=== PATIENT | female | born 1940 | race Caucasian/White ===

== ENCOUNTER 2016-08-18 11:54 | Inpatient (IN) | payer MEDICARE ==
--- NOTE | ~2016-08-18 | US77 ---
[facility] A Service of [facility] & [facility] RADIOLOGY TEXT RESULTS PATIENT: YASMIN CLIFTON LOCATION: [facility] 572-01 : 40 UNIT #: [id number] AGE: [address]: Janet Wills MD SEX: F ORDER DR: [id number] [facility] [address] [place], [place] [address] [id number] I MR#: [id number] Acc #: [id number] NAME: YASMIN CLIFTON. : 1940 SEX: F STUDY DATE/TIME: 08/19/2016 9:32 UNIT: [facility] ROOM: [facility] STUDY DESCRIPTION: US Kidney Bilateral Complete Attending Physician: Janet Wills M.D. Ordering Physician: Ed Doctor [id number] [facility] Primary Care Physician: Tee Bello M.D. MEDICAL IMAGING REPORT This report is preliminary unless electronic signature is present EXAM Complete renal ultrasound COMPARISON September 05, [address] abdomen and pelvis dated April 19, 2016. INDICATION 76-year-old female with chronic kidney disease. BUN of 48, creatinine of 2.2 and estimated GFR of 21. Additional history includes nonalcoholic steatohepatitis and prior cholecystectomy. FINDINGS Right kidney is small measuring up to 7.8 cm in length with cortical thinning. Cortical thickness is approximately 7.0-8.0 mm. There is no right hydronephrosis or shadowing calculus. Color flow is demonstrated in the right kidney. There are no focal lesions seen within the right kidney. There is a cirrhotic morphology of the liver which is small. Left kidney measures 8.9 cm in length, within normal limits for length with mild cortical thickening, (cortical thickness of 0.9 cm). Color flow is demonstrated within the left kidney. There is no left hydronephrosis, shadowing calculus or focal left renal lesion. There is mild splenomegaly with splenic length of 14.1 cm. Ascites is seen in the right upper quadrant of the abdomen as well as within the midline abdomen and pelvis. Ascitic fluid in the pelvis appears to be compressing the bladder which is not seen on this exam. IMPRESSION 1. Right kidney is small measuring up to 7.8 cm. There is normal left renal length. There is bilateral renal cortical thinning. No hydronephrosis, shadowing calculus or focal renal lesion. 2. Cirrhosis with mild splenomegaly and moderate ascites. Dictated by... [facility] A Service of [facility] & [facility] RADIOLOGY TEXT RESULTS PATIENT: YASMIN CLIFTON LOCATION: [place] [address] : 40 UNIT #: [id number] AGE: [address]: Janet Wills MD SEX: F ORDER DR: Daniel Hsu M.D. THIS IS AN ELECTRONICALLY VERIFIED REPORT Daniel Hsu M.D. at 08/21/2016 4:26 PM Daniel TD: 08/19/2016 22:17 JOB #: [id number] MEDICAL IMAGING REPORT Page 1 of 1 COPY
--- NOTE | ~2016-08-18 | CO ---
Unit #: [id number] #: [id number] Patient: YASMIN CLIFTON [id number] [address] [place], [place] [address] [id number] I MR#: [id number] NAME: YASMIN CLIFTON ROOM: 572 Age: 76 Sex: F Admission Date: 08/18/2016 : 1940 Attending Physician: Janet Wills M.D. Primary Care Physician: Tee Bello M.D. Consultation Date: 08/21/2016 CONSULTATION REPORT REASON FOR CONSULTATION Bradycardia. HISTORY OF PRESENT ILLNESS This is a 76-year-old white female, previously known to our group with a past medical history of coronary artery disease, status post cardiac catheterization 07/04/2007, which revealed a 60%-70% stenosis in the second obtuse marginal. Saphenous vein graft to the obtuse marginal was patent. Right coronary artery was 90% with saphenous vein graft to the right coronary artery patent. She was content on medical management. Previous coronary artery bypass grafting was in 1994. The patient also has a history of hypertension, COPD, chronic anemia and COOPER cirrhosis. She has not followed with a marine engineering teacher recently and denies stress test or cardiac catheterization the last couple of years. She presented to the emergency department on 08/18/2016 with complaints of shortness of breath. She has also had a productive cough with green sputum. There are no reports of fever or chills. The shortness of breath has been present for the last couple of days. She has had some right-sided chest pain with no radiation to the neck, jaw, shoulders or arms. There are no associated symptoms of nausea, vomiting or diaphoresis. In the emergency department her temperature is 99.3, pulse 91, respirations 18, blood pressure 137/38, O2 saturation 96% on room air. She is given Solu-Medrol, vancomycin, and normal saline. She was admitted for a right upper lobe pneumonia and COPD. Lung nodules were noted and pulmonology was consulted. In addition to the COPD, and pneumonia she was treated for ascites. She is found to be anemic with thrombocytopenia. Gastroenterology was consulted and she underwent an EGD, which revealed portal hypertension but no evidence of bleeding. Telemetry on 08/21/2016 and 08/22/2016 revealed sinus bradycardia with rates in the 30s for 40s. The patient also had a second degree AV block type 1. She admits to some dizziness but no syncope. No reports of current chest pain or palpitations. She does admit to shortness of breath that has not improved. She also has some abdominal distention and swelling. Cardiology was consulted for bradycardia. PAST MEDICAL HISTORY 1. Coronary artery disease, status post cardiac catheterization 07/04/2007, which revealed a left ventricular ejection fraction of 55%. Left main normal. Second obtuse marginal 60% to 70%. Saphenous vein graft to the obtuse marginal patent. Right coronary artery 90%. Saphenous vein graft to the right coronary artery patent. Please add LAD normal. Also add proximal right coronary artery 50%. 80% to 90% stenosis in the right common iliac artery. Medical management. Unit #: [id number] #: [id number] Patient: YASMIN CLIFTON 2. 2D echocardiogram 06/2007 revealed left ventricular ejection fraction of 55%. Mild LVH. Mild mitral and tricuspid regurgitation. Right ventricular systolic pressure of 40 mmHg. 3. History of coronary artery bypass grafting in 1994. 4. Hypertension. 5. Insulin dependent diabetes mellitus. 6. COPD. 7. COOPER. 8. Chronic anemia. 9. Chronic thrombocytopenia. 10. History of GI bleed. 11. Peripheral artery disease, status post left carotid endarterectomy. 12. Reformed tobacco. PAST SURGICAL HISTORY 1. Cardiac catheterization. 2. Coronary artery bypass grafting. 3. Left carotid endarterectomy. 4. Cholecystectomy. 5. Hysterectomy. 6. Exploratory laparotomy. 7. Bilateral breast biopsy. 8. Bilateral carpal tunnel release. HOME MEDICATIONS Humulin R of unknown dose; Protonix 40 mg p.o. b.i.d.; atenolol 25 mg daily; lactulose 30 mL p.o. 3 times daily; Lasix 40 mg p.o. daily; spironolactone 20 mg p.o. b.i.d.; Spiriva 1 inhalation daily; ProAir inhalation 3 times daily; Advair 250/50 one inhalation twice daily; acetaminophen 650 mg p.o. every 6 hours p.r.n. for pain. ALLERGIES Penicillin, sulfa, morphine, codeine, meperidine, and diphenhydramine. SOCIAL HISTORY The patient is a reformed smoker and quit over 25 years ago. There are no reports of alcohol of illicit drug use. FAMILY HISTORY Noncontributory. REVIEW OF SYSTEMS Ten point review of systems negative except for details in the above HPI. PHYSICAL EXAMINATION VITAL SIGNS: Temperature 97.5, pulse 64, blood pressure 160/54. CONSTITUTIONAL: This is a 76-year-old white female who is ill-appearing. SKIN: Warm and dry. NECK: Supple. Positive jugular venous distention. HEART: S1 and S2. Regular rate and rhythm. No murmurs, rubs or gallops. LUNGS: Bilateral breath sounds have good air entry except for some wheezes. Respirations even and unlabored. No rales or rhonchi. ABDOMEN: Distended, slightly firm and tender. Positive bowel sounds auscultated x4 quadrants. No ascites noted. EXTREMITIES: Lower extremities have trace pretibial pitting edema. DP and PT pulses 2+. Capillary refill is three seconds. DIAGNOSTIC STUDIES Unit #: [id number] #: [id number] Patient: YASMIN CLIFTON LABORATORY STUDIES: White blood cell count 8.0, hemoglobin 8.9, hematocrit 27.7, platelets 72. Sodium 136, potassium 4.9, chloride 109, CO2 17, BUN 57, creatinine 2.5, glucose 295, magnesium 2.3, AST 26, ALT 15, alk phos 98. BNP 494. Ammonia level 50. Lactic acid 1.7. INR 1.6. Influenza A and B negative. Urinalysis - positive for 1+ protein. IMAGING STUDIES: Chest x-ray 08/18/2016 reveals increased bronchovascular marking prominence around the right hilum compared to the previous exam. Perihilar infiltrate over congestive heart failure. Suspicion for right perihilar pneumonia. Ultrasound of the bilateral kidneys reveals right kidney is small measuring up to 7.8 cm. Normal left renal length. Bilateral renal cortical thickening. Cirrhosis with mild splenomegaly and moderate ascites. CT of the chest without contrast reveals irregularly marginated partially spiculated nodule in the superolateral right middle lobe 1.6 cm x 1.1 cm. Lobulated nodule in the anteromedial left upper lobe at 1.1 cm x 0.9 cm. Consider further evaluation with CT, PET scan or biopsy. Moderate patchy multifocal subsegmental infiltrates in the inferior and inferomedial right upper lobe. No adenopathy. Cirrhosis and small to moderate amount of perihepatic ascites. CARDIOVASCULAR STUDIES: Electrocardiogram reveals normal sinus rhythm with a ventricular rate of [address] or T changes. QTC 460 msec. IMPRESSION 1. Nonalcoholic steatohepatitis cirrhosis with ascites. 2. Anemia. 3. Thrombocytopenia. 4. Status post EGD with portal hypertension. 5. Right upper lobe pneumonia. 6. Chronic obstructive pulmonary disease. 7. Lung nodules. 8. Acute kidney injury on chronic kidney disease. 9. Secondary AV block, type 1. 10. History of coronary artery status post coronary artery bypass grafting in 1994. Grafts patent in 2007. 11. Previous ejection fraction 55% with mild mitral and tricuspid regurgitation. Mild to moderate pulmonary hypertension 06/2007. 12. Reformed tobacco abuse. PLAN 1. The patient presented to the hospital with complaints of shortness of breath. She was admitted for right upper lobe pneumonia and COPD. Gastroenterology was consulted for COOPER cirrhosis, ascites and anemia. 2. Cardiology was consulted due to bradycardia. 3. The patient (1) discontinued. There are no high grade AV blocks or significant pauses noted. 4. The patient appears significantly volume overloaded. However, her creatinine is elevated at 2.5. Nephrology has been consulted and will defer diuretics to them. 5. The patient is scheduled to undergo a paracentesis due to ascites. 6. Reports of chest pain. Cardiac enzymes are negative. 7. Will check a TSH level due to bradycardia and volume overload. Unit #: [id number] #: [id number] Patient: YASMIN CLIFTON Dictated by... Katrin Yarbrough APRN for Adrienne Amato TD: 08/24/2016 07:43 JOB #: [id number] CONSULTATION REPORT Page 1 of 1 X X CONSULTATION REPORT
--- NOTE | ~2016-08-18 | CR63 ---
[facility] A Service of [facility] RADIOLOGY TEXT RESULTS PATIENT: YASMIN CLIFTON LOCATION: [facility] 572-01 : 40 UNIT #: [id number] AGE: [address]: Frantz Cornejo MD SEX: F ORDER DR: [id number] [facility] [address] [place], [place] [address] [id number] I MR#: [id number] Acc #: [id number] NAME: YASMIN CLIFTON : 1940 SEX: F STUDY DATE/TIME: 08/26/2016 7:40 UNIT: [facility] ROOM: [facility] STUDY DESCRIPTION: CR Chest 2 View Attending Physician: Janet Wills M.D. Ordering Physician: Moy Martinez M.D. Primary Care Physician: Tee Bello M.D. MEDICAL IMAGING REPORT This report is preliminary unless electronic signature is present EXAM PA and lateral chest radiograph INDICATIONS Cough, congestion for 1 week COMPARISON Prior exam from August 18, 2016 FINDINGS Patient has cardiomegaly and vascular congestion which has worsened when compared to the prior examination. There are also bilateral pleural effusions left greater than right which increase when compared to the prior examination. No pneumothorax is seen. Patient is status post median sternotomy with coronary artery bypass grafting. There is discogenic degenerative disease of the spine and background changes of COPD. This patient is status median sternotomy with coronary artery bypass grafting. IMPRESSION 1. Cardiomegaly and vascular congestion worsened when compared to the prior exam. 2. Small bilateral pleural effusions left greater than right and left pleural effusion increased when compared to the prior study. Dictated by... Kendra Bello M.D. THIS IS AN ELECTRONICALLY VERIFIED REPORT Kendra Bello M.D. at 08/27/2016 4:36 PM AFF/to TD: 08/26/2016 17:48 [facility] A Service [facility] RADIOLOGY TEXT RESULTS PATIENT: YASMIN CLIFTON LOCATION: [facility] 572-01 : 40 UNIT #: [id number] AGE: [address]: Frantz Cornejo MD SEX: F ORDER DR: JOB #: [id number] MEDICAL IMAGING REPORT Page 1 of 1 COPY
--- NOTE | ~2016-08-18 | CT57 ---
[facility] A Service of [facility] RADIOLOGY TEXT RESULTS PATIENT: YASMIN CLIFTON LOCATION: [facility] 572-01 : 40 UNIT #: [id number] AGE: [address]: Janet Wills MD SEX: F ORDER DR: [id number] [facility] [address] [place], [place] [address] [id number] I MR#: [id number] Acc #: [id number] NAME: YASMIN CLIFTON. : 1940 SEX: F STUDY DATE/TIME: 08/19/2016 15:39 UNIT: [facility] ROOM: [facility] STUDY DESCRIPTION: CT Chest Wo Cont Attending Physician: Janet Wills M.D. Ordering Physician: Janet Wills M.D. Primary Care Physician: Tee Bello M.D. MEDICAL IMAGING REPORT This report is preliminary unless electronic signature is present EXAM CT chest without contrast HISTORY Shortness of air, congestion and cough for [address] examination was performed with one or more of the following radiation dose reduction techniques: automatic exposure control, adjustment of mA and/or kV according to patient size, and iterative reconstruction. FINDINGS CT chest without contrast demonstrates a 1.6 cm x 1.1 cm irregularly marginated, partly spiculated nodular lesion in the anterior right middle lobe. There is also a lobulated nodule in the anteromedial left upper lobe superiorly measuring 1.1 cm x 0.9 cm. Either or both of these lesions could be secondary to malignancy including lung carcinoma. Suggest further evaluation with PET/CT. There is also moderate to moderately extensive infiltrate in the anteroinferior right upper lobe, which could be secondary to pneumonia. There is also subsegmental atelectasis in the medial right middle lobe and in the inferior lingula. No adenopathy. Calcified mediastinal nodes. Sternotomy and CABG. Small hiatal hernia. Moderate thoracic kyphosis. Images of the upper abdomen demonstrate cirrhosis with a small to moderate amount of perihepatic ascites. IMPRESSION 1. Irregularly marginated partly spiculated nodule in the superolateral right middle lobe abutting the minor fissure measuring 1.6 cm x 1.1 cm. There is also a lobulated nodule in the anteromedial left upper lobe superiorly measuring 1.1 cm x 0.9 cm. Either or both of these lesions [facility] A Service of [facility] RADIOLOGY TEXT RESULTS PATIENT: YASMIN CLIFTON LOCATION: [facility] 572-01 : 40 UNIT #: [id number] AGE: [address]: Janet Wills MD SEX: F ORDER DR: could be secondary to malignancy including lung carcinoma. Consider further evaluation with PET/CT or biopsy. 2. Moderate patchy multifocal subsegmental infiltrates in the inferior and inferomedial right upper lobe. This could be secondary to pneumonia. There is additional subsegmental atelectasis in the anteromedial right upper lobe and in the medial right middle lobe and inferior lingula. 3. No adenopathy. 4. Images of the upper abdomen demonstrate cirrhosis and small to moderate amount of perihepatic ascites. Dictated by... Ugo Dunbar M.D. THIS IS AN ELECTRONICALLY VERIFIED REPORT Ugo Dunbar M.D. at 08/20/2016 3:04 PM EMILIANO/kishan TD: 08/20/2016 09:18 JOB #: [id number] MEDICAL IMAGING REPORT Page 1 of 1 COPY
--- NOTE | ~2016-08-18 | XA170 ---
[facility] A Service of [facility] & [facility] RADIOLOGY TEXT RESULTS PATIENT: YASMIN CLIFTON LOCATION: [facility] 57-01 : 40 UNIT #: [id number] AGE: [address]: Janet Wills MD SEX: F ORDER DR: [id number] [facility] [address] [place], [place] [address] [id number] I MR#: [id number] Acc #: [id number] NAME: YASMIN CLIFTON : 1940 SEX: F STUDY DATE/TIME: 08/21/2016 13:58 UNIT: [facility] ROOM: [facility] STUDY DESCRIPTION: XA Paracentesis W Image Attending Physician: Janet Wills M.D. Ordering Physician: Sara Rolon Aprn Primary Care Physician: Tee Bello M.D. MEDICAL IMAGING REPORT This report is preliminary unless electronic signature is present EXAM Ultrasound-guided paracentesis INDICATIONS 76-year-old female with ascites. Risks, benefits and alternatives of the procedure were discussed with the patient and informed consent was obtained. In the procedure room, a time-out was performed confirming correct patient and procedure. All elements of maximum sterile-barrier technique utilized according to guidelines appropriate for the procedure. TECHNIQUE/FINDINGS Ultrasound of the right lower quadrant was performed. There was a small amount of ascites. The overlying skin was prepped and draped in the usual sterile fashion. 1% lidocaine utilized to anesthetize the skin and underlying subcutaneous tissues. Next, under ultrasound guidance, a 5-Algerian Yueh catheter was inserted into the peritoneal space of the right lower quadrant and 1,700 mL of fluid was removed and samples sent to the lab. Needle was removed and a sterile dressing was applied. No immediate complications. IMPRESSION Successful ultrasound-guided paracentesis. Dictated by... Jose Garcia M.D. THIS IS AN ELECTRONICALLY VERIFIED REPORT Jose Garcia M.D. at 08/22/2016 9:09 AM ELAINE/kg TD: 08/21/2016 20:25 JOB #: [id number] [facility] A Service of [facility] & [facility] RADIOLOGY TEXT RESULTS PATIENT: YASMIN CLIFTON LOCATION: [facility] 572-01 : 40 UNIT #: [id number] AGE: [address]: Jante Wills MD SEX: F ORDER DR: MEDICAL IMAGING REPORT Page 1 of 1 COPY
--- NOTE | ~2016-08-18 | CT4 ---
[facility] A Service of [facility] & [facility] RADIOLOGY TEXT RESULTS PATIENT: YASMIN CLIFTON LOCATION: [facility] 572-01 : 40 UNIT #: [id number] AGE: [address]: Janet Wills MD SEX: F ORDER DR: [id number] [facility] [address] [place], [place] [address] [id number] I MR#: [id number] Acc #: [id number] NAME: YASIMN CLIFTON. : 1940 SEX: F STUDY DATE/TIME: 08/20/2016 23:20 UNIT: [facility] ROOM: 2 STUDY DESCRIPTION: CT Abd and Pelv Wo Cont Attending Physician: Janet Wills M.D. Ordering Physician: Janet Wills M.D. Primary Care Physician: Tee Bello M.D. MEDICAL IMAGING REPORT This report is preliminary unless electronic signature is present EXAM Abdomen and pelvis CT without contrast 08/20/2016 INDICATIONS 76-year-old female with chronic renal disease. Mid abdominal pain and flank pain on the right. History of kidney stones. Worsening symptoms over the past 2 days TECHNIQUE Noncontrast abdomen and pelvis CT was performed. This CT exam was performed with one or more of the following radiation dose reduction techniques: Automatic exposure control, adjustment of mA and/or kV according to patient size, and iterative reconstruction. COMPARISON 04/19/[address] abdomen Exam markedly degraded by noncontrast technique. There are bilateral pleural effusions trace on the left, small on the right. There is atelectasis in the lung bases. There is atelectasis in the lingula and right middle lobe. Chronic appearing area of likely scarring in the right middle lobe measures about 8 mm but has a spiculated appearance. Attention on followup to document 2 years of stability is recommended. No pericardial effusion. Aorta demonstrates atherosclerotic change. The spleen is borderline in size. Adrenal glands are unremarkable. Pancreas atrophic. Gallbladder surgically absent. Liver demonstrates advanced cirrhosis and is otherwise not well characterized or assessed on this noncontrast study. There is perihepatic and perisplenic ascites. No [facility] A Service of [facility] & [facility] RADIOLOGY TEXT RESULTS PATIENT: YASMIN CLIFTON LOCATION: [facility] 572-01 : 40 UNIT #: [id number] AGE: [address]: Janet Wills MD SEX: F ORDER DR: hydronephrosis or radiopaque stone associated with either kidney. Ureters not well visualized or assessed. No secondary sign of obstruction on either side. CT pelvis Bladder decompressed. There is moderate to large volume of ascites tracking into the pelvis. There is diverticulosis of the colon. No adnexal mass. Appendix not identified. No secondary sign of appendicitis. There is ascites tracking in both pericolic gutters right greater than left. No inguinal adenopathy or fluid collection. Recanalized periumbilical vein. No free air. No suspicious bone lesion. IMPRESSION 1. No radiopaque stone or hydronephrosis 2. Advanced cirrhosis of the liver with portal hypertension 3. Vliwvqju-tf-jnpnj volume of ascites 4. Diverticulosis 5. Pleural effusions right greater than left 6. Indeterminate spiculated area in the right middle lobe probably chronic scarring and unchanged from a prior study in March of 2016. Documentation of 2 years of stability on imaging is however recommended. 7. Surgical absence of the gallbladder and uterus. 1. Dictated by... Familia Fatima M.D. THIS IS AN ELECTRONICALLY VERIFIED REPORT Familia Fatima M.D. at 08/21/2016 9:59 PM ASHLEY/terell TD: 08/21/2016 09:30 JOB #: [id number] MEDICAL IMAGING REPORT Page 1 of 1 COPY
--- NOTE | ~2016-08-18 | OR ---
Unit #: [id number] #: [id number] Patient: YASMNI CLIFTON [id number] [facility]. [address] [address] [id number] I MR#: [id number] NAME: YASMIN CLIFTON ROOM: 572 Date of Procedure: 08/20/2016 Admission Date: 08/18/2016 Surgeon: Vasile Ghosh M.D. : 1940 Attending Physician: Janet Wills M.D. Primary Care Physician: Tee Bello M.D. OPERATIVE REPORT ADDITIONAL ATTENDING PHYSICIAN Dr. Angelo Escobar. PRIMARY CARE PHYSICIAN Tee Bello M.D. PREOPERATIVE DIAGNOSES History of melena, anemia of possible gastrointestinal blood loss, underlying nonalcoholic steatohepatitis with cirrhosis, and portal hypertension. PROCEDURE PERFORMED Upper gastrointestinal endoscopy. POSTOPERATIVE DIAGNOSES The patient had changes of portal hypertensive gastropathy in the stomach, otherwise examination was normal up to third part of duodenum. RECOMMENDATIONS The patient is too sick to undergo colonoscopy and also she is a poor surgical candidate. Suggest therefore transfuse packed cells and monitor hemoglobin and hematocrit. She also has significant underlying renal disease which may be contributing to anemia. SEDATION USED MAC. DESCRIPTION OF PROCEDURE Following detailed explanation of potential risks and complications of an upper endoscopy, namely perforation, bleeding, complication related to sedation, the patient was brought to the GI lab and laid in the left lateral decubitus position. Lubricated tip of the Olympus video upper endoscope was passed through the bite block into the proximal esophagus under direct vision. The entire esophageal mucosa was examined and appeared normal. Z-line was nicely demarcated, there being no esophagitis or hiatus hernia. Specifically, no esophageal varices were seen. The scope was then advanced into the gastric cavity and the latter was insufflated. Mucosa of the fundus, body, and antrum was examined and the patient was noted to have changes of portal hypertensive gastropathy in the form of reticular appearance of the mucosa and the fundus. The distal body and antrum was normal. Pylorus was intubated with visualization of the normal duodenal bulb and second and third part of the duodenum. Upon Unit #: [id number] #: [id number] Patient: YASMIN CLIFTON withdrawn and retroflexion, incisura, cardia, and greater curve was examined and no additional findings were noted. The scope was then withdrawn in the distal esophagus. The entire esophageal mucosa was examined all the way up to pharynx. No additional findings were noted. The patient tolerated the procedure without any postprocedure complications. Dictated by... Adrienne Pace TD: 08/21/2016 06:20 JOB #: [id number] OPERATIVE REPORT Page 1 of 1 X Vasile Ghosh MD X PROCEDURE OPERATIVE NOTE
--- NOTE | ~2016-08-18 | CO ---
Unit #: [id number] #: [id number] Patient: YASMIN CLIFTON [id number] [facility]. [address] [address] [id number] I MR#: [id number] NAME: YASMIN CLIFTON. ROOM: 572 Age: 76 Sex: F Admission Date: 08/18/2016 : 1940 Attending Physician: Janet Wills M.D. Primary Care Physician: Tee Bello M.D. Consultation Date: 08/20/2016 CONSULTATION REPORT ADDITIONAL ATTENDING PHYSICIAN Janet Wills M.D. REASON FOR CONSULTATION 1. Anemia, possibly of chronic gastrointestinal blood loss. 2. Underlying COOPER related cirrhosis. HISTORY OF PRESENT ILLNESS Ms. Clifton is a 76-year-old white female who is well known to me. She has longstanding history of COOPER related cirrhosis. She is admitted with increasing shortness of breath, swelling over the lower extremities and abdomen as well as decline in hemoglobin. She also has a history of melena yesterday and day before. Her admission chest x-ray showed right perihilar pneumonia. The patient is admitted because of sepsis, having had lactic acid is 2.6 and pneumonia. She has longstanding history of COPD. PAST MEDICAL HISTORY Significant for history of COPD, thrombocytopenia as a result of chronic liver disease from COOPER related cirrhosis, insulin-dependent diabetes, coronary artery disease, previous coronary artery bypass graft, peripheral arterial disease, left carotid endarterectomy, history of transient ischemic attacks, and hypertension. PAST SURGICAL HISTORY Included coronary artery bypass graft, left carotid endarterectomy, cholecystectomy, hysterectomy, exploratory laparotomy, bilateral breast biopsy, and bilateral carpal tunnel release. SOCIAL HISTORY The patient never drank alcohol and quit smoking about 26 years ago. FAMILY HISTORY None of colon, pancreatic cancer, or liver disease. MEDICATIONS At home included Humulin insulin, pantoprazole, Tenormin, lactulose, Lasix, Aldactone, Spiriva, ProAir, Advair, and acetaminophen. ALLERGIES She is allergic to metformin, Demerol, fentanyl, sulfonamides, diphenhydramine, and morphine. Unit #: [id number] #: [id number] Patient: YASMIN CLIFTON REVIEW OF SYSTEMS Detailed review of organ systems does not reveal any recent weight loss. No history of fever, chills, or rigors. No history of headache, seizures, chest pain, or syncope. No history of cough, expectoration, or hemoptysis. No history of dysuria, hematuria, or pyuria. No history of focal seizures or extremity weakness. PHYSICAL EXAMINATION GENERAL: She is awake, alert, and oriented, and appears to be short of breath even at baseline and is having bronchospasm at the time of examination. VITAL SIGNS: Indicated temperature of 97.7, pulse is 61 per minute and regular, respirations 18, blood pressure 135/47. She weighs 141 and 143 pounds, which is close to her baseline weight or little less. HEENT: She has buyy-ty-mrouyvlh pallor. There being no icterus, lymphadenopathy, or peripheral edema. CARDIOVASCULAR: Normal heart sounds. No murmurs on auscultation. LUNGS: Reveal bilateral diminished symmetric air entry along with expiratory wheeze. ABDOMEN: Soft and nontender. The patient has some degree of adiposity. It is hard to discern whether there is any underlying ascites. Liver and spleen are not palpable. Bowel sounds are normal. Hernia sites also normal. DIAGNOSTIC STUDIES LABORATORY RESULTS: Shows an INR of 1.6. Serum chemistry shows a BUN and creatinine of 35 and 2.1 and her baseline BUN and creatinine were 28 and 1.8. Serum sodium is 130, CO2 is 18, blood glucose 203, albumin is 2.4, total bilirubin is 2.9. AST, ALT, and alkaline phosphatase are all normal. BNP is 494. Ammonia is 50. The patient's platelet count is 74; white count is 10.4; hemoglobin 6, baseline hemoglobin is 10. CLINICAL IMPRESSION The patient has significant comorbidity in the form of nonalcoholic steatohepatitis related cirrhosis with associated thrombocytopenia. The anemia may be related to upper gastrointestinal bleed possibly from portal hypertensive gastropathy. An upper endoscopy therefore warranted to be scheduled shortly. In addition, the patient will be transfused packed cells. Hypoalbuminemia and thrombocytopenia are all related to underlying liver disease. The patient has significant comorbidity in the form of chronic obstructive pulmonary disease, on home oxygen and therefore not a good surgical candidate and a colonoscopy therefore unwarranted. Also underlying peripheral arterial disease and coronary artery disease. An upper endoscopy and a possible endotherapy will be planned later today. Thank you for asking me to see this pleasant woman. I appreciate the consult. Dictated byHoward.. Adrienne Pace TD: 08/21/2016 23:58 JOB #: [id number] Unit #: [id number] #: [id number] Patient: YASMIN CLIFTON CONSULTATION REPORT Page 1 of 1 X Vasile Ghosh MD CONSULTATION REPORT
--- NOTE | ~2016-08-18 | CO ---
Unit #: [id number] #: [id number] Patient: YASMIN CLIFTON xxx [facility]. [address] [address] [id number] I MR#: [id number] NAME: YASMIN CLIFTON ROOM: 572 Age: Sex: F Admission Date: 08/18/2016 : 1940 Attending Physician: Janet Wills M.D. Primary Care Physician: Tee Bello M.D. CONSULTATION REPORT REASON FOR CONSULT Acute kidney injury on chronic kidney disease. HISTORY OF PRESENT ILLNESS A 76-year-old white female with history of COOPER cirrhosis and CKD with baseline around 1 to 1.4 in the past who presented with shortness of breath, diarrhea and poor p.o. intake. In the emergency department she was found to have sepsis, likely secondary to pneumonia, as well as acute kidney injury with creatinine elevated to 2.1. She reported some chills but no fevers, poor p.o. intake, diarrhea, but denies any dysuria or hematuria. PAST MEDICAL HISTORY COOPER cirrhosis, diabetes, coronary artery disease status post CABG in the past, hypertension and COPD. PAST SURGICAL HISTORY CABG, carotid endarterectomy, cholecystectomy, hysterectomy, breast biopsy and bilateral carpal tunnel release. MEDICATIONS Insulin, Protonix, sodium bicarbonate, Combivent, Lovenox, Bumex, Lasix and spironolactone. PHYSICAL EXAMINATION GENERAL: She is currently in no acute distress. HEENT: She has dry oral mucosa. RESPIRATORY: She is clear to auscultation bilaterally. ABDOMEN: She has ascites. EXTREMITIES: No lower extremity edema. CARDIOVASCULAR: Regular rate and rhythm without gallop, murmur or rub. NEUROLOGIC: She is awake, alert, oriented x3. No focal deficits noted. DIAGNOSTIC STUDIES LABORATORY: White count 6.5, hemoglobin 7.4, platelets 67. Sodium 132, potassium 4.9, chloride 106, bicarb 18, BUN 39, creatinine 2.1, glucose 256. Urinalysis currently pending. ASSESSMENT AND PLAN 1. Acute kidney injury due to volume depletion per history, but she also has increased abdominal girth, which might be ascites and, therefore, volume overloaded. I am hesitant to give IV fluids secondary to her shortness of breath and ascites. However, she looks dry on exam at this time without peripheral edema. At this time we will check UA, Unit #: [id number] #: [id number] Patient: YASMIN CLIFTON urine electrolytes and will check a renal ultrasound. Will not give IV fluids but will hold diuretics for now. 2. Sepsis secondary to pneumonia, on antibiotics. Will need to be renally dosed. 3. Metabolic acidosis secondary to acute kidney injury, not critical. Check labs in the morning. Might need to restart sodium bicarbonate. 4. Hyponatremia secondary to volume depletion versus hypervolemia, but it also improved when adjusted for the chloride. Will hold IV fluids and diuretics tonight. Thanks for the consult. Dictated by... Ananya Pathak M.D. Romario TD: 08/25/2016 12:09 JOB #: [id number] CONSULTATION REPORT Page 1 of 1 X X CONSULTATION REPORT
--- NOTE | ~2016-08-18 | CO ---
Unit #: [id number] #: [id number] Patient: YASMIN CLIFTON [id number] [address] [place], [place] [address] [id number] I MR#: [id number] NAME: YASMIN CLIFTON ROOM: 572 Age: 76 Sex: F Admission Date: 08/18/2016 : 1940 Attending Physician: Janet Wills M.D. Primary Care Physician: Tee Bello M.D. CONSULTATION REPORT HISTORY OF PRESENT ILLNESS Ms. Clifton is a 76-year-old white female with history of COPD, cirrhosis, COOPER, insulin-dependent diabetes mellitus, coronary artery disease, peripheral vascular disease, history of GI bleed, who presented to the emergency room with a 3-day history of increasing shortness of breath. She also complained of cough and congestion and low-grade fever. She denied any nausea or vomiting. She had had some diarrhea. She says she has had a cough since and said she has been told she had pneumonia since then. I have reviewed the CT scans in the [place] system and there are no comments made about pneumonia. She had a CT scan of the chest in March, I believe on 04/19/2016, which did show some nodular densities in the right upper and left upper lobe. They were not commented on. The most recent CT scan was done yesterday and revealed to my review a 1.6 x 1.1 cm spiculated nodular lesion in the anterior right upper lobe and a 1.1 cm x 0.9 cm left upper lobe nodule. When compared to the March x-ray, they seem to have gotten a little bit larger. There was now an infiltrative process in the anterior part of the right upper lobe. She has had no hemoptysis. PAST MEDICAL HISTORY Significant for: 1. COPD. 2. Anemia. 3. Thrombocytopenia. 4. Cirrhosis secondary to COOPER. 5. Insulin-dependent diabetes mellitus. 6. Gastrointestinal bleeding. 7. Coronary artery disease. 8. History of CABG. 9. Peripheral vascular disease with left carotid endarterectomy. 10. History of TIAs. 11. Hypertension. PAST SURGICAL HISTORY 1. CABG. 2. Left carotid endarterectomy. 3. Cholecystectomy. 4. Hysterectomy. 5. Exploratory laparotomy. 6. Bilateral breast biopsy. 7. Bilateral carpal tunnel release. HOME MEDICATIONS Unit #: [id number] #: [id number] Patient: YASMIN CLIFTON 1. Humulin. 2. Prilosec. 3. Tenormin. 4. Lactulose. 5. Lasix. 6. Aldactone. 7. Spiriva. 8. ProAir. 9. Advair. 10. Acetaminophen. ALLERGIES 1. Morphine. 2. Metformin. 3. Demerol. 4. Fentanyl. 5. Sulfa. 6. Diphenhydramine. SOCIAL HISTORY Reformed smoker times 26 years. Denies alcohol or illicit drugs. FAMILY HISTORY Negative for inheritable disease. REVIEW OF SYSTEMS CONSTITUTIONAL: Possibly some fever and chills. HEENT: No rhinorrhea or nasal congestion. PULMONARY: As noted. CARDIOVASCULAR: No chest pain. GASTROINTESTINAL: No nausea or vomiting, some diarrhea. GENITOURINARY: No hematuria or dysuria. ENDOCRINE: No polyuria, polydipsia. NEUROLOGIC: No unilateral weakness or numbness. MUSCULOSKELETAL: No swollen joints. Does have increased lower extremity edema. HEMATOLOGIC: Does have easy bruising and bleeding. SKIN: She does have a lot of bruising. No rash. PHYSICAL EXAMINATION VITAL SIGNS: Blood pressure 134/80, pulse 73, respiratory rate 16, afebrile. GENERAL: White female in no distress. HEENT: Normocephalic, atraumatic. Pupils equal, round, reactive. Sclerae anicteric. Nasal passages patent. Posterior pharynx moist. NECK: Supple. Trachea midline. No cervical or supraclavicular lymphadenopathy. LUNGS: Occasional rhonchi. Some crackles at the bases. HEART: Sounds are distant. Regular rate and rhythm. Could not appreciate murmur, rub or gallop. ABDOMEN: Mildly distended. Bowel sounds present. No hepatosplenomegaly appreciated. EXTREMITIES: Without clubbing, cyanosis. There is 2+ edema. NEUROLOGIC: Awake, alert, oriented x3. Moves all extremities. SKIN: Warm and dry. Bruising noted. DIAGNOSTIC STUDIES LABORATORY: Creatinine 2.3. Lactic acid 1.7. PT/INR 1.6. White blood Unit #: [id number] #: [id number] Patient: YASMIN CLIFTON cell count 8, hematocrit 19.6, platelet count 74,000. Influenza is negative. Blood culture is currently negative. IMPRESSION 1. Bilateral nodules right upper lobe, left upper lobe. 2. New infiltrate right upper lobe, possible pneumonia. 3. Underlying chronic obstructive pulmonary disease. 4. Cirrhosis with COOPER. 5. Thrombocytopenia. 6. Other problems as noted above. PLAN 1. Would treat with antibiotics for pneumonia. 2. Will treat obstructive lung disease with inhaled bronchodilators. 3. Will need followup chest x-ray/CT scan to ensure clearing in one month. If not, will need bronchoscopy for evaluation. 4. Further recommendations pending this. Dictated by... Moy Martinez M.D. ANIYA/kristy TD: 08/21/2016 21:34 JOB #: [id number] CONSULTATION REPORT Page 1 of 1 X Moy Martinez MD X CONSULTATION REPORT
--- NOTE | ~2016-08-18 | EKG ---
PATIENT: YASMIN CLIFTON UNIT #: [id number] Ventricular Rate: 105 BPM Atrial Rate: 97 BPM QRS Duration: 68 ms Q-T Interval: 360 ms QTC Calculation(Bezet): 475 ms Calculated R [place]: 59 degrees Calculated T [place]: 64 degrees Diagnosis Line: Atrial fibrillation with rapid ventricular Diagnosis Line: response Diagnosis Line: Nonspecific ST abnormality Diagnosis Line: Abnormal ECG Diagnosis Line: When compared with ECG of 21-AUG-2016 08:04, Diagnosis Line: Atrial fibrillation has replaced Sinus rhythm Diagnosis Line: Vent. rate has increased BY 48 BPM Diagnosis Line: Confirmed by VICKIE RYAN MD ([id number]) on 08/28/2016 Diagnosis Line: 10:29:16 PM INTERPRETING MD: CONNOR MAHONEY
--- NOTE | ~2016-08-18 | DS ---
Unit #: [id number] #: [id number] Patient: YASMIN CLIFTON [id number] [address] [address] [id number] I MR#: [id number] NAME: YASMIN CLIFTON. ROOM: 572 Age: 76 Sex: F Admission Date: 08/18/2016 : 1940 Discharge Date: Attending Physician: Frantz Cornejo M.D. Primary Care Physician: Tee Bello M.D. DISCHARGE SUMMARY PLACE OF DISCHARGE To rehab facility. REASON FOR ADMISSION Pneumonia and sepsis on admission. HISTORY OF PRESENT ILLNESS/HOSPITAL COURSE The patient is a 76-year-old female underlying history of COOPER, chronic kidney disease, and chronic anemia, who was originally admitted secondary to mental status change as well as presumed right perihilar pneumonia. Through hospital course in regard to her pneumonia, she underwent a CT chest noncontrast which did reveal aforementioned infiltrate as well as two lung nodules which were noted. Pulmonary Services were subsequently consulted. Dr. Martinez and associates followed the patient through hospital course. He recommended outpatient CT in approximately 6 weeks for followup in regard to pneumonia/lung nodules. No further investigations were performed this hospital admission. In secondary to underlying history of COOPER as well as anemia, Dr. Ghosh was consulted for Gastroenterology Services as he had seen the patient in the past. She did have mental status change consistent with hepatic encephalopathy. She was maintained appropriately on lactulose while she was here. She did eventually undergo upper GI endoscopy secondary to decreased hemoglobin, please see his notes in regard to the same. In regard to her chronic kidney decline as well as kidney disease. Consultation was placed to Renal Services, Dr. Bettina Soto, saw and evaluated the patient while she was here. She was diuresed appropriately as her creatinine function would tolerate. In regard to her history of COOPER and cirrhosis, she did develop ascites and underwent paracentesis in this hospital admission. Cardiology Services were consulted secondary to atrial flutter with rapid ventricular response. She was maintained on rate control with beta blockers, however, no further anticoagulation was given secondary to her pancytopenia secondary to COOPER as well as elevated INR. Unit #: [id number] #: [id number] Patient: GUENTHNER,SANGEETHA At this point in time, all services have now signed off stating that she is stable for discharge. Physical and Occupational Therapy Services, both recommended rehab at time of discharge. Overall, her condition is guarded at best. Her prognosis is guarded and family is well aware. She is noted to be a DNR status which was reaffirmed with her as well as her family present at bedside. FINAL DISCHARGE DIAGNOSES 1. Right upper lobe pneumonia. 2. Lung nodules x2 noted on CT chest possible concern for underlying malignancy. 3. Anemia. 4. Bright red blood per rectum off and on likely with upper gastrointestinal bleed ruled out. 5. Portal hypertension. 6. Ascites, status post paracentesis with 1700 mL removed. 7. Chronic thrombocytopenia with baseline platelets between 60 to 80. 8. Chronic pancytopenia secondary to nonalcoholic steatohepatitis/cirrhosis. 9. Coagulopathy with INR noted to be 2.0. 10. Anemia, baseline hemoglobin between 8 to 9. 11. Atrial flutter with rapid ventricular response. No anticoagulation indicated. 12. Chronic obstructive pulmonary disease. 13. Hepatic encephalopathy. 14. Type 1 second-degree AV block, Wenckebach. 15. Severe tricuspid regurgitation noted on 2D echo this hospital admission. 16. Ejection fraction 50%. 17. Likely diastolic dysfunction. 18. Mental status changes secondary to aforementioned pneumonia as well as hepatic encephalopathy. 19. Generalized anxiety disorder. FINAL DISCHARGE MEDICATIONS Proventil HFA one puff t.i.d., albuterol nebulizer solution q.4 p.r.n., Advair 250/50 one puff b.i.d., lactulose t.i.d., Tylenol 650 mg p.o. q.6 p.r.n., Xifaxan 550 mg p.o. b.i.d., Spiriva 1 inhalation daily, probiotic p.o. daily, Lopressor 12.5 mg p.o. b.i.d., Bumex 1 mg p.o. daily, NovoLog low-dose sliding scale with Accu-Cheks q.a.c. and q.h.s., Aldactone 25 mg p.o. b.i.d., Protonix 40 mg p.o. b.i.d. Please note, prednisone, sodium bicarbonate, renal medications as well as antibiotics will be determined after they see and evaluate the patient later this afternoon. DISCHARGE DISPOSITION To rehab. Dictated by... Adrienne Stone/gladys Unit #: [id number] #: [id number] Patient: YASMIN CLIFTON TD: 08/27/2016 04:49 JOB #: [id number] DISCHARGE SUMMARY Page 1 of 1 X Janet Wills MD X DISCHARGE SUMMARY
--- NOTE | ~2016-08-18 | EKG ---
PATIENT: YASMIN CLIFTON UNIT #: [id number] Ventricular Rate: 83 BPM Atrial Rate: 83 BPM P-R Interval: 188 ms QRS Duration: 68 ms Q-T Interval: 392 ms QTC Calculation(Bezet): 460 ms P [place]: 44 degrees Calculated R [place]: 68 degrees Calculated T [place]: 17 degrees Diagnosis Line: Normal sinus rhythm Diagnosis Line: Nonspecific ST abnormality Diagnosis Line: Otherwise normal ECG Diagnosis Line: When compared with ECG of 15-OCT-2015 22:51, Diagnosis Line: No significant change was found Diagnosis Line: Confirmed by GRETTA CHAVEZ MD ([id number]) on 08/20/2016 Diagnosis Line: 10:53:57 PM INTERPRETING MD: SCOTT MAHONEY
--- NOTE | ~2016-08-18 | DS ---
Unit #: [id number] #: [id number] Patient: YASMIN CLIFTON [id number] [address] [address] [id number] I MR#: [id number] NAME: YASMIN CLIFTON ROOM: 2 Age: 76 Sex: F Admission Date: 08/18/2016 : 1940 Discharge Date: Attending Physician: Frantz Cornejo M.D. Primary Care Physician: Tee Bello M.D. DISCHARGE SUMMARY ADDENDUM No changes in the previous dictation. In the 24 hours that have passed since the dictation, bed has been found and the patient is being discharged now with no changes to the clinical course. Dictated by... Adrienne Suero/gz TD: 08/27/2016 13:45 JOB #: [id number] DISCHARGE SUMMARY Page 1 of 1 X Frantz Cornejo MD X DISCHARGE SUMMARY
--- NOTE | ~2016-08-18 | EKG ---
PATIENT: YASMIN CLIFTON UNIT #: [id number] Ventricular Rate: 57 BPM Atrial Rate: 58 BPM P-R Interval: 204 ms QRS Duration: 74 ms Q-T Interval: 496 ms QTC Calculation(Bezet): 482 ms P [place]: 24 degrees Calculated R [place]: 36 degrees Calculated T [place]: 30 degrees Diagnosis Line: Sinus bradycardia with marked sinus arrhythmia Diagnosis Line: Otherwise normal ECG Diagnosis Line: When compared with ECG of 18-AUG-2016 11:35, Diagnosis Line: No significant change was found Diagnosis Line: Confirmed by GRETTA CHAVEZ MD ([id number]) on 08/22/2016 Diagnosis Line: 9:14:19 PM INTERPRETING MD: SCOTT MAHONEY
--- NOTE | ~2016-08-18 | CR72 ---
[facility] A Service of [facility] RADIOLOGY TEXT RESULTS PATIENT: YASMIN CLIFTON LOCATION: [facility] : 40 UNIT #: [id number] AGE: [address]: Janet Wills MD SEX: F ORDER DR: [id number] [facility] [address] [facility]. [place], [place] [address] [id number] I MR#: [id number] Acc #: [id number] NAME: YASMIN CLIFTON. : 1940 SEX: F STUDY DATE/TIME: 08/18/2016 11:40 UNIT: [facility] ROOM: [facility] STUDY DESCRIPTION: CR Chest Single View Portable Attending Physician: Angelo Escobar M.D. Ordering Physician: Didier River D.O. Primary Care Physician: Tee Bello M.D. MEDICAL IMAGING REPORT This report is preliminary unless electronic signature is present EXAM Portable chest HISTORY Shortness breath, cough, congestion and dyspnea, chronically but worse over the past 3 days. COMPARISON 06/05/2016 TECHNIQUE Single view chest was obtained. FINDINGS The heart and mediastinum are stable. In the lungs, no new focal infiltrates are seen. Pulmonary vascular markings are mildly prominent. On the left side, this is unchanged. Bronchovascular markings around the right hilum are more prominent than on the previous exam. This could reflect a right perihilar infiltrate. No pleural fluid is seen. The heart and mediastinum are stable. IMPRESSION There is increased bronchovascular marking prominence around the right hilum compared to the previous examination while left lung shows no significant change. I favor perihilar infiltrate over congestive heart failure. Given the asymmetry. Findings are suspicious for right perihilar pneumonia given the patient's symptoms. Dictated by... Nabil Del Rio M.D. [facility] A Service of [facility] & [facility] RADIOLOGY TEXT RESULTS PATIENT: YASMIN CLIFTON LOCATION: [facility] : 40 UNIT #: [id number] AGE: [address]: Janet Wills MD SEX: F ORDER DR: THIS IS AN ELECTRONICALLY VERIFIED REPORT Nabil Del Rio M.D. at 08/21/2016 9:46 AM PRIMITIVO/dilan TD: 08/18/2016 22:31 JOB #: [id number] MEDICAL IMAGING REPORT Page 1 of 1 COPY
--- NOTE | ~2016-08-18 | HP ---
Unit #: [id number] #: [id number] Patient: YASMIN CLIFTON [id number] [address] [address] [id number] I MR#: [id number] NAME: YASMIN CLIFTON ROOM: 33563 Age: 76 Sex: F Admission Date: 08/18/2016 : 1940 Attending Physician: Angelo Escobar M.D. Primary Care Physician: Tee Bello M.D. HISTORY AND PHYSICAL CHIEF COMPLAINT Shortness of breath. 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 The patient was also complaining of the productive cough associated with the shortness of breath and the low-grade fever. The patient denies any nausea and vomiting. The patient complains of the diarrhea, started yesterday and states that it feels like the patient has pneumonia in the right lung. The patient had a chest x-ray that showed right perihilar pneumonia, infiltrate and is admitted for the above reasons. The patient had a lactic of 2.6 and is being admitted for the sepsis and the right perihilar pneumonia. 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 PAST SURGICAL HISTORY CABG, left carotid endarterectomy, cholecystectomy, hysterectomy, ex lap, bilateral breast biopsy, bilateral carpal tunnel release. SOCIAL HISTORY The patient used to smoke but she quit 26 years ago. The patient denies alcohol or any illicit drug abuse. FAMILY HISTORY Reviewed and none. ALLERGIES Morphine, metformin, Demerol, Fentanyl, sulfa and diphenhydramine. HOME MEDICATIONS 1. Humulin. 2. Pantoprazole. 3. Tenormin. 4. Lactulose. 5. Lasix. 6. Aldactone. Unit #: [id number] #: [id number] Patient: YASMIN CLIFTON 7. Spiriva. 8. ProAir. 9. Advair. 10. Acetaminophen. REVIEW OF SYMPTOMS A 14-point review of systems was performed and the only pertinent positive findings are described above. Remaining are negative. PHYSICAL EXAMINATION GENERAL APPEARANCE: The patient is lying on the bed not in acute distress. VITAL SIGNS: Temperature 99.3. Pulse 91. Respiratory rate 18. Blood pressure 137/38. Sating 96% at room air. HEENT: Head: Atraumatic, normocephalic. Pupils equal, round, reacting light and accommodation. Extraocular movements are intact. NECK: Supple. Dry mucous membranes. LUNGS: Diffuse air entry at the bases. Positive for rhonchi. HEART: Regular rate and rhythm. ABDOMEN: Distended. Positive bowel sounds. EXTREMITIES: No cyanosis. No clubbing. NEUROLOGIC: Alert, awake, oriented. DIAGNOSTIC STUDIES LABORATORY: Glucose 203, BUN 23, creatinine 2.1, sodium 130, potassium 3.9, chloride 104, bicarb 18, calcium 8, total protein 6.1, albumin 2.4, total bilirubin 2.9, indirect bilirubin 1.8, direct bilirubin 1.1, AST 30, ALT 16, alkaline phosphatase 143. BNP 494. Ammonia 52. Lactic acid 2.4 and down to 1.7. INR 1.4. WBC 10.4, hemoglobin 7.6, hematocrit 24.3, platelets 73. Flu screen is negative. IMAGING: The chest x-ray shows right perihilar infiltrate concerning for pneumonia. ASSESSMENT 1. Right perihilar pneumonia. 2. Sepsis. 3. (1) . 4. Anemia. PLAN To admit the patient to inpatient with telemetry. The patient will have IV antibiotics with aztreonam and Zithromax. The patient will continue with the sepsis protocol, will have a GI consult for anemia and the Renal consult for the hyponatremia and acute kidney injury. Repeat the labs again in the morning and low dose sliding scale and further recommendation will follow as more lab results are available. Dictated by Adrienne Mendiola TD: 08/18/2016 18:33 JOB #: [id number] Unit #: [id number] #: [id number] Patient: YASMIN CLIFTON HISTORY AND PHYSICAL Page 1 of 1 X X HISTORY AND PHYSICAL
[2016-08-18 11:50] LABS: POC - CKMB <1.0 ng/mL (0.0-7.9); POC - TROPONIN <0.05 ng/mL (<=0.05)
[~2016-08-18 11:54] MED LIST: ACETAMINOPHEN PO; ADVAIR 250-501 EAC1 INH; ADVAIR 2501 DISK W/1; ADVAIR 2501 DISK W/1 INH; ALBUTEROL17 GM INH; ALBUTEROL20 ml INH; ALDACTONE PO; ALDACTONE25 MG; ALDACTONE25 MG PO; ALPRAZOLAM; ALPRAZOLAM PO; ALVESCO 160 MCG PO; AMARYL; ASPIRIN EC81 M1 PO; ASPIRIN81 M1 PO; ASPIRINEC; ASPIRINEC PO; ATENOLOL PO; AVAPRO; CENTRUM SILVER; CERTAGEN PO; CIPRO PO; CIPRO250 MG PO; CORGARD; CORGARD40 MG PO; DICYCLOMINE HCL20 MG PO; DOXYCYCLINE HY100 M3 PO; ENULOSE PO; FEOSOL PO; FERROUS SU325 ( 65 ) PO; FLAGYL PO; FLAGYL250 M1 PO; FUROSEMIDE40 MG PO; GENERLAC; HUMULIN N; HUMULIN N100 U/ML; HUMULIN N100 U/ML SQ; HUMULIN N100 U/ML SUBQ; HUMULIN N300 U/3 ML SUBQ; HUMULIN R100 U/ML; HUMULIN R100 U/ML SQ; HUMULIN R100 U/ML SUBQ; IRON1 TAB; KCL PO; KLOR-CON PO; LACTULOSE PO; LACTULOSE10 G/15 M1 PO; LACTULOSE10 G/15 ML PO; LASIX; LASIX PO; LASIX20 MG PO; LOMOTIL TABLET1 TAB; LORTAB 10-5001 EACH PO; LORTAB 5-325 M1 EACH; LORTAB 5/500 TA1 TA1 PO; MULTI-DAY VITAM1 TAB PO; MULTI-VITAMIN1 TAB; MULTI-VITAMIN1 TAB PO; NEXIUM; NEXIUM PO; NITROGYLCERIN; NITROGYLCERIN SL; NITROGYLCERIN SUBLINGUAL; NITROSTAT0.4 MG; NYSTATIN-TRIAMC15 G1; PANTOPRAZOLE SO40 MG PO; PHENERGAN PO; PHENERGAN SUPP25 MG PR; PROAIR HFA8.5 GM; PROAIR HFA8.5 GM INH; PROTONIX PO; SPIRIVA18 MCG; SPIRIVA18 MCG INH; TENORMIN25 MG PO; TENORMIN50 MG; ULTRAM PO; ZOFRAN ODT4 MG PO; ZOFRAN ODT4 MG/UDTAB PO
[2016-08-18 12:03] LABS: BASOPHIL% 0.3 % (0-2.5); EOSINOPHIL% 0.1 % (0.0-7.0); HEMATOCRIT 24.3 % (35.0-45.0); HEMOGLOBIN 7.6 gm/dL (12.0-16.0); LYMPHOCYTE# 0.8 X10e3 (1.0-3.5); MEAN CELL VOLUME 87.5 FL (83-96); MEAN CORPUSCULAR HEMOGLOBIN 27.4 PG (28-34); MEAN CORPUSCULAR HGB CONC 31.4 g/dL (30-36); MEAN PLATELET VOLUME 11.4 FL (6.5-11.5); MONOCYTE# 1.9 X10e3 (0-1.0); MONOCYTE% 17.8 % (3.0-12.0); NEUTROPHIL# 7.7 X10e3 (1.5-7.1); NEUTROPHIL% 73.8 % (40-75); RED BLOOD COUNT 2.78 X10e (3.90-5.30); WHITE BLOOD COUNT 10.4 X10e3 (4.0-10.5)
[2016-08-18 12:10] LABS: INR 1.4; PARTIAL THROMBOPLASTIN TIME 34.3 SECONDS (23.5-31.3); PROTHROMBIN TIME (PATIENT) 15.3 SECONDS (9.6-11.5)
[2016-08-18 12:22] LABS: ALBUMIN SERUM 2.4 g/dL (3.5-5.0); BILIRUBIN, DIRECT 1.1 mg/dL (0.0-0.2); BILIRUBIN,INDIRECT 1.8 mg/dL (0.0-0.9); BILIRUBIN,TOTAL 2.9 mg/dL (0.2-2.0); BUN/CREATININE RATIO 16.66; CREATININE SERUM 2.1 mg/dL (0.6-1.4); GLOM FILT RATE Estimated 22.3 mL/min (>60); POTASSIUM 3.9 mmol/L (3.5-5.1); PROTEIN TOTAL SERUM 6.1 g/dL (6.0-8.3)
[2016-08-18 12:23] LABS: INFLUENZA A NEG (NEG); INFLUENZA B NEG (NEG)
[2016-08-18 12:48] LABS: DIFF IND YES; PLATELET COUNT 73 X10e3 (140-420)
[2016-08-18 12:52] LABS: PLATELET ESTIMATE DECREASED (NORMAL)
[2016-08-18 12:53] LABS: ANISOCYTOSIS SL
[2016-08-18 13:58] LABS: POC - CKMB <1.0 ng/mL (0.0-7.9); POC - TROPONIN <0.05 ng/mL (<=0.05)
[2016-08-18 19:11] LABS: EOSINOPHIL# 0.2 X10e3 (0-0.7); EOSINOPHIL% 2.4 % (0.0-7.0); HEMATOCRIT 23.4 % (35.0-45.0); HEMOGLOBIN 7.4 gm/dL (12.0-16.0); LYMPHOCYTE# 0.5 X10e3 (1.0-3.5); LYMPHOCYTE% 7.3 % (17.0-45.0); MEAN CELL VOLUME 86.8 FL (83-96); MEAN CORPUSCULAR HEMOGLOBIN 27.5 PG (28-34); MEAN CORPUSCULAR HGB CONC 31.7 g/dL (30-36); MEAN PLATELET VOLUME 11.6 FL (6.5-11.5); MONOCYTE# 0.6 X10e3 (0-1.0); MONOCYTE% 9.8 % (3.0-12.0); NEUTROPHIL# 5.2 X10e3 (1.5-7.1); NEUTROPHIL% 80.5 % (40-75); PLATELET COUNT 67 X10e3 (140-420); WHITE BLOOD COUNT 6.5 X10e3 (4.0-10.5)
[2016-08-18 19:19] LABS: DIFF IND YES
[2016-08-18 19:30] LABS: BUN/CREATININE RATIO 18.57; CALCIUM SERUM 7.9 mg/dL (8.4-10.2); CREATININE SERUM 2.1 mg/dL (0.6-1.4); GLOM FILT RATE Estimated 22.3 mL/min (>60); POTASSIUM 4.9 mmol/L (3.5-5.1)
[2016-08-18 19:54] LABS: ANISOCYTOSIS MOD; PLATELET ESTIMATE DECREASED (NORMAL); POIKILOCYTOSIS MOD
[2016-08-18 19:55] LABS: TARGET CELLS SL
[2016-08-19 06:04] LABS: URINE SOURCE CLEAN CATCH
[2016-08-19 06:14] LABS: URINE APPEARANCE CLEAR; URINE BILIRUBIN NEG (NEG); URINE BLOOD NEG (NEG); URINE COLOR YELLOW; URINE GLUCOSE NEG (NEG); URINE KETONE NEG (NEG); URINE LEUKOCYTE ESTERASE TRACE (NEG); URINE NITRATE NEG (NEG); URINE PROTEIN NEG (NEG); URINE SPECIFIC GRAVITY 1.015 (1.003-1.035)
[2016-08-19 06:16] LABS: URINE BACTERIA AUWI NEG (NEGATIVE); URINE SQUAMOUS EPITHELIAL CELL OCC /[HPF]
[2016-08-19 06:20] LABS: CREATININE,RANDOM URINE 118 mg/dL
[2016-08-19 06:23] LABS: SODIUM URINE RANDOM <10 mmol/L
[2016-08-19 09:07] LABS: HEMATOCRIT 24.3 % (35.0-45.0); HEMOGLOBIN 7.5 gm/dL (12.0-16.0); MEAN CELL VOLUME 88.2 FL (83-96); MEAN CORPUSCULAR HEMOGLOBIN 27.2 PG (28-34); MEAN CORPUSCULAR HGB CONC 30.8 g/dL (30-36); RED BLOOD COUNT 2.76 X10e (3.90-5.30); RED CELL DISTRIBUTION WIDTH 17.7 % (11.0-15.5); WHITE BLOOD COUNT 5.3 X10e3 (4.0-10.5)
[2016-08-19 09:27] LABS: BUN/CREATININE RATIO 21.81; CALCIUM SERUM 8.3 mg/dL (8.4-10.2); CREATININE SERUM 2.2 mg/dL (0.6-1.4); GLOM FILT RATE Estimated 21.1 mL/min (>60); POTASSIUM 4.6 mmol/L (3.5-5.1)
[2016-08-20 13:04] LABS: HEMATOCRIT 19.6 % (35.0-45.0); MEAN CELL VOLUME 90.4 FL (83-96); MEAN CORPUSCULAR HEMOGLOBIN 27.8 PG (28-34); MEAN CORPUSCULAR HGB CONC 30.8 g/dL (30-36); MEAN PLATELET VOLUME 12.2 FL (6.5-11.5); RED BLOOD COUNT 2.17 X10e (3.90-5.30); RED CELL DISTRIBUTION WIDTH 18.6 % (11.0-15.5)
[2016-08-20 13:17] LABS: INR 1.6; PROTHROMBIN TIME (PATIENT) 16.6 SECONDS (9.6-11.5)
[2016-08-20 13:50] LABS: ALBUMIN SERUM 3.2 g/dL (3.5-5.0); BILIRUBIN,TOTAL 1.1 mg/dL (0.2-2.0); BUN/CREATININE RATIO 26.08; CALCIUM SERUM 8.4 mg/dL (8.4-10.2); CREATININE SERUM 2.3 mg/dL (0.6-1.4); MAGNESIUM 2.2 mg/dL (1.6-3.0); POTASSIUM 4.7 mmol/L (3.5-5.1)
[2016-08-21 10:36] LABS: HEMATOCRIT 27.7 % (35.0-45.0); MEAN CELL VOLUME 88.7 FL (83-96); MEAN CORPUSCULAR HEMOGLOBIN 28.6 PG (28-34); MEAN CORPUSCULAR HGB CONC 32.2 g/dL (30-36); MEAN PLATELET VOLUME 10.9 FL (6.5-11.5); RED BLOOD COUNT 3.13 X10e (3.90-5.30); RED CELL DISTRIBUTION WIDTH 16.9 % (11.0-15.5)
[2016-08-21 10:47] LABS: HEMOGLOBIN 8.9 gm/dL (12.0-16.0)
[2016-08-21 11:04] LABS: BUN/CREATININE RATIO 22.8; CALCIUM SERUM 8.7 mg/dL (8.4-10.2); CREATININE SERUM 2.5 mg/dL (0.6-1.4); GLOM FILT RATE Estimated 18.1 mL/min (>60); MAGNESIUM 2.3 mg/dL (1.6-3.0); PHOSPHOROUS 3.7 mg/dL (2.5-4.6); POTASSIUM 4.9 mmol/L (3.5-5.1)
[2016-08-21 14:25] LABS: URINE SOURCE CLEAN CATCH
[2016-08-21 14:43] LABS: URINE APPEARANCE CLEAR; URINE BILIRUBIN NEG (NEG); URINE BLOOD NEG (NEG); URINE COLOR YELLOW; URINE GLUCOSE NEG (NEG); URINE KETONE NEG (NEG); URINE LEUKOCYTE ESTERASE NEG (NEG); URINE NITRATE NEG (NEG); URINE PROTEIN 1+ (NEG); URINE SPECIFIC GRAVITY 1.016 (1.003-1.035); URINE UROBILINOGEN 0.2 MG/DL (NEG)
[2016-08-21 14:44] LABS: URBCS1 AUWI 0-2 /[HPF] (0-2); URINE BACTERIA AUWI NEG (NEGATIVE); URINE SQUAMOUS EPITHELIAL CELL NONE SEEN /[HPF]; UWBCS1 AUWI 0-2 (0-5)
[2016-08-21 14:45] LABS: CULTURE INDICATED? NO
[2016-08-21 16:19] LABS: BF TOTAL NUCLEATED CELL COUNT 236 CMM (0-100); BODY FLUID APPEARANCE HAZY; BODY FLUID RBC <10000 CMM; BODY FLUID SOURCE ASCITES
[2016-08-22 05:51] LABS: HEMATOCRIT 27.3 % (35.0-45.0); HEMOGLOBIN 8.8 gm/dL (12.0-16.0); MEAN CELL VOLUME 88.5 FL (83-96); MEAN CORPUSCULAR HEMOGLOBIN 28.4 PG (28-34); MEAN CORPUSCULAR HGB CONC 32.1 g/dL (30-36); MEAN PLATELET VOLUME 10.5 FL (6.5-11.5); RED BLOOD COUNT 3.09 X10e (3.90-5.30); RED CELL DISTRIBUTION WIDTH 17.1 % (11.0-15.5); WHITE BLOOD COUNT 6.1 X10e3 (4.0-10.5)
[2016-08-22 06:39] LABS: ALBUMIN SERUM 3.1 g/dL (3.5-5.0); BILIRUBIN,TOTAL 2.1 mg/dL (0.2-2.0); BUN/CREATININE RATIO 22.08; CALCIUM SERUM 8.7 mg/dL (8.4-10.2); CREATININE SERUM 2.4 mg/dL (0.6-1.4); POTASSIUM 4.5 mmol/L (3.5-5.1); PROTEIN TOTAL SERUM 5.8 g/dL (6.0-8.3)
[2016-08-22 14:14] LABS: ARTERIAL BLD GAS O2 SATURATION 91.3 % (90.0-100.0); ARTERIAL BLOOD GAS CARBOXY HB 0.9 %sat (0.0-9.0); ARTERIAL BLOOD GAS HCO3 18.7 mmol/L; ARTERIAL BLOOD GAS PCO2 33.9 mmHg (35.0-45.0); ARTERIAL BLOOD GAS pH 7.351 (7.350-7.450)
[2016-08-22 14:15] LABS: ARTERIAL BLOOD GAS ALLEN TEST NORMAL; ARTERIAL BLOOD GAS ART SITE RIGHT RADIAL; ARTERIAL BLOOD GAS DELIVERY NASAL CANNULA; ARTERIAL DRAW? YES
[2016-08-23 06:32] LABS: MEAN CELL VOLUME 90.7 FL (83-96); MEAN CORPUSCULAR HEMOGLOBIN 29.3 PG (28-34); MEAN CORPUSCULAR HGB CONC 32.3 g/dL (30-36); MEAN PLATELET VOLUME 11.1 FL (6.5-11.5); RED BLOOD COUNT 3.08 X10e (3.90-5.30); RED CELL DISTRIBUTION WIDTH 17.4 % (11.0-15.5); WHITE BLOOD COUNT 7.6 X10e3 (4.0-10.5)
[2016-08-23 07:05] LABS: ALBUMIN SERUM 3.2 g/dL (3.5-5.0); BILIRUBIN,TOTAL 1.6 mg/dL (0.2-2.0); BUN/CREATININE RATIO 21.11; CALCIUM SERUM 9.3 mg/dL (8.4-10.2); CREATININE SERUM 2.7 mg/dL (0.6-1.4); GLOM FILT RATE Estimated 16.5 mL/min (>60); MAGNESIUM 2.2 mg/dL (1.6-3.0); PHOSPHOROUS 4.6 mg/dL (2.5-4.6); POTASSIUM 4.5 mmol/L (3.5-5.1); PROTEIN TOTAL SERUM 5.8 g/dL (6.0-8.3)
[2016-08-24 06:07] LABS: HEMATOCRIT 26.1 % (35.0-45.0); HEMOGLOBIN 8.4 gm/dL (12.0-16.0); MEAN CELL VOLUME 90.3 FL (83-96); MEAN CORPUSCULAR HGB CONC 32.1 g/dL (30-36); MEAN PLATELET VOLUME 10.4 FL (6.5-11.5); RED BLOOD COUNT 2.89 X10e (3.90-5.30); RED CELL DISTRIBUTION WIDTH 17.3 % (11.0-15.5); WHITE BLOOD COUNT 10.8 X10e3 (4.0-10.5)
[2016-08-24 06:28] LABS: BILIRUBIN,TOTAL 1.4 mg/dL (0.2-2.0); BUN/CREATININE RATIO 24.07; CREATININE SERUM 2.7 mg/dL (0.6-1.4); GLOM FILT RATE Estimated 16.5 mL/min (>60); POTASSIUM 3.1 mmol/L (3.5-5.1); PROTEIN TOTAL SERUM 5.5 g/dL (6.0-8.3)
[2016-08-24 06:29] LABS: THYROID STIMULATING HORMONE 0.15 uIU/ml (0.34-5.60)
[2016-08-24 06:38] LABS: FREE THYROXIN (T4) 1.28 ng/dL (0.58-1.64)
[2016-08-24 22:33] LABS: URINE APPEARANCE CLEAR; URINE BILIRUBIN NEG (NEG); URINE BLOOD 3+ (NEG); URINE COLOR YELLOW; URINE GLUCOSE NEG (NEG); URINE KETONE NEG (NEG); URINE LEUKOCYTE ESTERASE TRACE (NEG); URINE NITRATE NEG (NEG); URINE PROTEIN 1+ (NEG); URINE SPECIFIC GRAVITY 1.012 (1.003-1.035); URINE UROBILINOGEN 0.2 MG/DL (NEG)
[2016-08-24 22:36] LABS: URINE BACTERIA AUWI NEG (NEGATIVE); URINE SQUAMOUS EPITHELIAL CELL OCC /[HPF]
[2016-08-24 22:45] LABS: U HYALINE CASTS AUWI 0-2 /[LPF]
[2016-08-25 11:20] LABS: PROTHROMBIN TIME (PATIENT) 21.3 SECONDS (9.6-11.5)
[2016-08-25 11:31] LABS: ALBUMIN SERUM 3.2 g/dL (3.5-5.0); BILIRUBIN,TOTAL 1.7 mg/dL (0.2-2.0); BUN/CREATININE RATIO 24.07; CALCIUM SERUM 9.2 mg/dL (8.4-10.2); CREATININE SERUM 2.7 mg/dL (0.6-1.4); GLOM FILT RATE Estimated 16.5 mL/min (>60); PHOSPHOROUS 4.1 mg/dL (2.5-4.6); POTASSIUM 4.2 mmol/L (3.5-5.1)
[2016-08-25 18:23] LABS: HEMOGLOBIN 9.7 gm/dL (12.0-16.0); MEAN CELL VOLUME 95.5 FL (83-96); MEAN CORPUSCULAR HEMOGLOBIN 28.9 PG (28-34); MEAN CORPUSCULAR HGB CONC 30.3 g/dL (30-36); MEAN PLATELET VOLUME 10.9 FL (6.5-11.5); RED BLOOD COUNT 3.35 X10e (3.90-5.30); RED CELL DISTRIBUTION WIDTH 17.7 % (11.0-15.5); WHITE BLOOD COUNT 15.8 X10e3 (4.0-10.5)
[2016-08-26 07:58] LABS: HEMATOCRIT 31.2 % (35.0-45.0); HEMOGLOBIN 9.5 gm/dL (12.0-16.0); MEAN CELL VOLUME 94.9 FL (83-96); MEAN CORPUSCULAR HEMOGLOBIN 28.7 PG (28-34); MEAN CORPUSCULAR HGB CONC 30.3 g/dL (30-36); MEAN PLATELET VOLUME 11.2 FL (6.5-11.5); RED BLOOD COUNT 3.29 X10e (3.90-5.30); RED CELL DISTRIBUTION WIDTH 18.1 % (11.0-15.5); WHITE BLOOD COUNT 14.5 X10e3 (4.0-10.5)
[2016-08-26 08:19] LABS: BUN/CREATININE RATIO 29.58; CALCIUM SERUM 8.8 mg/dL (8.4-10.2); CREATININE SERUM 2.4 mg/dL (0.6-1.4); POTASSIUM 4.1 mmol/L (3.5-5.1)
[2016-08-27 05:41] LABS: HEMATOCRIT 30.1 % (35.0-45.0); HEMOGLOBIN 9.5 gm/dL (12.0-16.0); MEAN CELL VOLUME 93.8 FL (83-96); MEAN CORPUSCULAR HEMOGLOBIN 29.6 PG (28-34); MEAN CORPUSCULAR HGB CONC 31.6 g/dL (30-36); MEAN PLATELET VOLUME 10.6 FL (6.5-11.5); RED BLOOD COUNT 3.21 X10e (3.90-5.30); RED CELL DISTRIBUTION WIDTH 18.1 % (11.0-15.5); WHITE BLOOD COUNT 10.9 X10e3 (4.0-10.5)
[2016-08-27 06:09] LABS: BUN/CREATININE RATIO 33.33; CALCIUM SERUM 8.7 mg/dL (8.4-10.2); CREATININE SERUM 2.1 mg/dL (0.6-1.4); GLOM FILT RATE Estimated 22.3 mL/min (>60); POTASSIUM 3.8 mmol/L (3.5-5.1)
== END 2016-08-27 17:02 | DRG 871 ==
LOC: CED 11:54 → CEDOF 14:00 → C5C 21:33
PROVIDERS: Emergency Medicine; Family Medicine; Internal Medicine; Internal Medicine Cardiovascular Disease; Internal Medicine Gastroenterology; Internal Medicine Nephrology; Nurse Practitioner
PROC: 30233N1 Transfusion of Nonautologous Red Blood Cells into Peripheral Vein, Percutaneous Approach (ICD-10-PCS; 2016-08-18)
PROC: 0DJ08ZZ Inspection of Upper Intestinal Tract, Via Natural or Artificial Opening Endoscopic (ICD-10-PCS; principal; 2016-08-21)
PROC: 0W9G30Z Drainage of Peritoneal Cavity with Drainage Device, Percutaneous Approach (ICD-10-PCS; 2016-08-21)
PROC: B24BYZZ Ultrasonography of Heart with Aorta using Other Contrast (ICD-10-PCS; 2016-08-21)
DX: A41.9 Sepsis, unspecified organism (principal); J18.9 Pneumonia, unspecified organism; J96.01 Acute respiratory failure with hypoxia; E87.2 Acidosis; D61.818 Other pancytopenia; R18.8 Other ascites; N17.9 Acute kidney failure, unspecified; N18.4 Chronic kidney disease, stage 4 (severe); I44.1 Atrioventricular block, second degree; K76.6 Portal hypertension; E87.1 Hypo-osmolality and hyponatremia; J44.1 Chronic obstructive pulmonary disease with (acute) exacerbation; I48.92 Unspecified atrial flutter; K62.5 Hemorrhage of anus and rectum; D69.6 Thrombocytopenia, unspecified; Z95.1 Presence of aortocoronary bypass graft; I73.9 Peripheral vascular disease, unspecified; Z86.73 Personal history of transient ischemic attack (TIA), and cerebral infarction without residual deficits; Z90.49 Acquired absence of other specified parts of digestive tract; Z90.710 Acquired absence of both cervix and uterus; Z87.891 Personal history of nicotine dependence; Z88.2 Allergy status to sulfonamides; R00.1 Bradycardia, unspecified; I08.1 Rheumatic disorders of both mitral and tricuspid valves; Z88.0 Allergy status to penicillin; E11.22 Type 2 diabetes mellitus with diabetic chronic kidney disease; Z79.4 Long term (current) use of insulin; I27.2 Other secondary pulmonary hypertension; R91.8 Other nonspecific abnormal finding of lung field; D50.0 Iron deficiency anemia secondary to blood loss (chronic); Z99.81 Dependence on supplemental oxygen; K31.89 Other diseases of stomach and duodenum; I25.119 Atherosclerotic heart disease of native coronary artery with unspecified angina pectoris; Z66 Do not resuscitate; K72.90 Hepatic failure, unspecified without coma; I48.91 Unspecified atrial fibrillation; Z00.6 Encounter for examination for normal comparison and control in clinical research program; F41.1 Generalized anxiety disorder; I12.9 Hypertensive chronic kidney disease with stage 1 through stage 4 chronic kidney disease, or unspecified chronic kidney disease
CPT/HCPCS: 36415; 36600; 71010; 71020; 71250; 74176; 76770; 80048; 80053; 80076; 81003; 82042; 82140; 82274; 82308; 82553; 82570; 82728; 82803; 82947; 83605; 83735; 83880; 84100; 84300; 84439; 84443; 84484; 85025; 85027; 85610; 85730; 86850; 86900; 86901; 86923; 87040; 87804; 87899; 88108; 88305; 89051; 93005; 93306; 94640; 94664; 94760; 96374; 97116; 97163; 97167; 97530; 99285; C9113; G0238; G8978-GP; G8979-GP; G8987-GO; G8988-GO; J0456; J0885; J1650; J1815; J1940; J2060; J2354; J2405; J2916; J2920; J2930; J3370; P9016; P9045

== ENCOUNTER 2016-09-06 11:49 | Observation (INO) | payer MEDICARE ==
--- NOTE | ~2016-09-06 | US5 ---
[facility] A Service of [facility] & [facility] RADIOLOGY TEXT RESULTS PATIENT: YASMIN CLIFTON LOCATION: [facility] 474-01 : 40 UNIT #: [id number] AGE: [address]: Janet Wills MD SEX: F ORDER DR: [id number] [facility] [address] [place], [place] [address] [id number] I MR#: [id number] Acc #: [id number] NAME: YASMIN CLIFTON. : 1940 SEX: F STUDY DATE/TIME: 09/07/2016 12:34 UNIT: [facility] ROOM: 478 STUDY DESCRIPTION: US Abdominal Complete Attending Physician: Janet Wills M.D. Referring Physician: Koffi Self Referred Ordering Physician: Janet Wills M.D. Primary Care Physician: eTe Bello M.D. MEDICAL IMAGING REPORT This report is preliminary unless electronic signature is present EXAM Abdominal ultrasound. INDICATION Cirrhosis. Patient underwent a paracentesis today. TECHNIQUE Grayscale, color Doppler and spectral Doppler wave form analysis was performed through the abdomen. FINDINGS Pancreas cannot seen due to overlying bowel gas. The liver is cirrhotic in morphology, and there is evidence of portal hypertension. The patient does have ascites and splenomegaly with the spleen measuring up to 15 cm in craniocaudal dimensions. No obvious focal hepatic lesions are seen. This relates to the veery technically limited exam, due to overlying bowel gas. I do think the main portal vein is patent with hepatopetal flow although there are again, limited views of the main portal vein. The kidneys are normal in appearance. No solid or cystic renal masses are seen. There is no hydronephrosis. There is no intra- or extrahepatic biliary dilatation. The patient's gallbladder is surgically absent. The aortic cannot be assessed secondary to bowel gas. IMPRESSION 1. Cirrhotic morphology to the liver with evidence of portal hypertension, as the patient does have splenomegaly and probably some residual small volume ascites. 2. I do think the portal vein is probably patent with hepatopetal flow, although this exam was really not optimized for evaluation of the portal vein. 3. Pancreas and aorta cannot be assessed due to overlying bowel gas. [facility] A Service of [facility] & [facility] RADIOLOGY TEXT RESULTS PATIENT: YASMIN CLIFTON LOCATION: [facility] 474-01 : 40 UNIT #: [id number] AGE: [address]: Janet Wills MD SEX: F ORDER DR: Dictated by... Kendra Bello M.D. THIS IS AN ELECTRONICALLY VERIFIED REPORT Kendra Bello M.D. at 09/08/2016 2:12 PM PASCALE/bina TD: 09/07/2016 17:41 JOB #: [id number] MEDICAL IMAGING REPORT Page 1 of 1 COPY
--- NOTE | ~2016-09-06 | XA170 ---
[facility] A Service of [facility] RADIOLOGY TEXT RESULTS PATIENT: YASMIN CLIFTON LOCATION: [facility] 474- : 40 UNIT #: [id number] AGE: [address]: Janet Wills MD SEX: F ORDER DR: [id number] [facility] [address]. [place], [place] [address] [id number] I MR#: [id number] Acc #: [id number] NAME: YASMIN CLIFTON : 1940 SEX: F STUDY DATE/TIME: 09/07/2016 11:45 UNIT: [facility] ROOM: [facility] STUDY DESCRIPTION: XA Paracentesis W Image Attending Physician: Janet Wills M.D. Referring Physician: Self Referral-Refer Use Only Ordering Physician: Juan Pablo Snow M.D. Primary Care Physician: Tee Bello M.D. MEDICAL IMAGING REPORT This report is preliminary unless electronic signature is present EXAM Ultrasound guided paracentesis HISTORY Recurrent ascites. PROCEDURE Informed consent was obtained. A skin site was selected with ultrasound guidance and marked, sterilely prepped and draped and locally anesthetized. Paracentesis was performed with a Xradiaeh needle catheter and 3 L of fluid was removed. There were no complications and the patient tolerated the procedure well. IMPRESSION Successful ultrasound guided right lower quadrant paracentesis with removal of 3 L of fluid without complication. Dictated by... Hernan Mcgarry M.D. THIS IS AN ELECTRONICALLY VERIFIED REPORT Hernan Mcgarry M.D. at 09/11/2016 3:59 PM TEV/psc TD: 09/09/2016 22:16 JOB #: [id number] MEDICAL IMAGING REPORT Page 1 of 1 COPY
--- NOTE | ~2016-09-06 | DS ---
Unit #: [id number] #: [id number] Patient: YASMIN CLIFTON [id number] [address] [address] [id number] I MR#: [id number] NAME: YASMIN CLIFTON ROOM: 474 Age: 76 Sex: F Admission Date: 09/06/2016 : 1940 Discharge Date: 09/09/2016 Attending Physician: Janet Wills M.D. Referring Physician: Self Referral-Refer Use Only Primary Care Physician: Tee Bello M.D. DISCHARGE SUMMARY DISPOSITION Home with hospice. REASON FOR ADMISSION Recurrent abdominal pain/ascites. 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 Over the past 7 days, she has had paracentesis x2 with 7 liters removed during this hospital admission. She underwent an ultrasound with 3 liters removed during paracentesis procedure. She also was noted to have thrombocytopenia as well as chronic pancytopenia, which is her baseline. Consultations were placed to hematology as well as gastroenterology services and, after discussion and review with patient's family, ultimately they were made well aware of her prognosis as being guarded at best and decision has been made for her to be discharged home with hospice services. Patient currently is alert and oriented x3 and she states that she is quite tired and does not want any further laboratory studies or any hospital admissions and she states that she wishes to go home and pass away in peace. Myself, Dr. Roman, as well as Dr. Ghosh have conveyed to the patient in regards to her prognosis all parties are in agreement and plans will be made for her to be transitioned after hospice sees and evaluates the patient for discharge home. FINAL DISCHARGE DIAGNOSES 1. End stage cirrhosis. 2. Recurrent ascites. 3. Nonalcoholic steatohepatitis. 4. Chronic kidney disease. 5. Pancytopenia. 6. Severe thrombocytopenia. 7. Diabetes. 8. 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 9. Pulmonary nodule, concern for underlying malignancy. 10. Coronary artery disease. 11. History of coronary artery bypass graft. 12. Peripheral vascular disease. 13. History of transient ischemic attack. 14. Chronic obstructive pulmonary disease. Unit #: [id number] #: [id number] Patient: YASMIN CLIFTON DISPOSITION Home with hospice. DISCHARGE MEDICATIONS Medications at time of discharge will be determined by hospice services. Dictated by... Adrienne Stone/kody TD: 09/11/2016 06:42 JOB #: [id number] DISCHARGE SUMMARY Page 1 of 1 X Janet Wills MD X DISCHARGE SUMMARY
--- NOTE | ~2016-09-06 | CO ---
Unit #: [id number] #: [id number] Patient: YASMIN CLIFTON [id number] [facility]. [place], [place] [address] [id number] I MR#: [id number] NAME: YASMIN CLIFTON ROOM: 474 Age: 76 Sex: F Admission Date: 09/06/2016 : 1940 Attending Physician: Janet Wills M.D. Primary Care Physician: Tee Bello M.D. Consultation Date: 09/07/2016 CONSULTATION REPORT REASON FOR CONSULTATION Acute on chronic thrombocytopenia. HISTORY OF PRESENT ILLNESS Ms. Yasmin Clifton is a [id number], well known to me, with a history of nonalcoholic steatohepatitis, chronic kidney disease, pancytopenia, coronary artery disease, who was admitted to the hospital to rehab for abdominal pain and recurrent ascites. She was admitted to the hospital and discharged to rehab facility on 08/27/2016. She has since been admitted to [facility] on 09/05/2016 before discharged home after paracentesis and readmitted 24 hours later to [facility]. Following admission, she was noted to be severely thrombocytopenic with an admission platelet count of 17,000, for which she was transfused a unit of platelets. Repeat platelet count thereafter was again low at 14 and she has been transfused another unit of platelets. Her CBC today is pending. Ms. Cai tells me she is tired and wishes to get hospice involved in her care. She has had no bleeding and yesterday she did have large volume of 3 L paracentesis. PAST MEDICAL HISTORY History of nonalcoholic steatohepatitis with cirrhosis of liver with portal hypertensive gastropathy, chronic kidney disease, pancytopenia, history of hepatic encephalopathy, both during her previous admission as well as when admitted to [facility]. Other medical problems include severe tricuspid regurgitation, coronary artery disease with previous bypass grafting, peripheral vascular disease, TIA, hypertension, diabetes, COPD. PAST SURGICAL HISTORY Includes coronary bypass grafting, left carotid endarterectomy, cholecystectomy, hysterectomy, breast biopsy, carpal tunnel release and most recently during hospitalization findings of portal hypertensive gastropathy and EGD. FAMILY HISTORY Negative for blood disorders. SOCIAL HISTORY Does not smoke currently nor drink any alcohol. She is single, , losing her on 08/25/2016 when she was rehabbed. She was unable to attend his because she was hospitalized thereafter. REVIEW OF SYSTEMS 14-point review of systems was taken. Unit #: [id number] #: [id number] Patient: YASMIN CLIFTON CONSTITUTIONAL: Fatigue and weakness. EYES: Negative. EARS, NOSE, MOUTH AND THROAT: Negative. CARDIOVASCULAR: Shortness of breathing which is chronic. No chest pain. RESPIRATORY: Shortness of breathing. No significant change in chronic cough. She has a pulmonary nodule. GASTROINTESTINAL: Abdominal distention, which feels better after having a paracentesis. GENITOURINARY: Negative. NEUROLOGIC: Episodes of hepatic encephalopathy. ALLERGIES: Negative. LYMPHATIC: Negative. ENDOCRINE: Diabetic. PSYCHIATRIC: Negative. NEUROLOGIC: Episodes of confusion. PHYSICAL EXAMINATION GENERAL: She is a pleasant elderly woman, who looks significantly frailer than my last examination. VITAL SIGNS: Temperature is 97.7, pulse is 71, respiratory rate is 20, blood pressure 155/70, O2 sat is 96% on room air. HEENT: Shows evidence of recent weight loss. She is pale, but not icteric. Mucous membranes are slightly dry. NECK: Without adenopathy. JVD up to the angle of the mandible. CARDIOVASCULAR: First and second heart sounds are heard with a soft systolic murmur. LUNGS: Chest expansion is symmetric anteriorly. ABDOMEN: Soft and nondistended. Liver and spleen are palpable. She just had a paracentesis. EXTREMITIES: Warm with trace edema. NEUROLOGIC: She is awake, alert, and oriented x3 without any focal findings. PSYCHIATRIC: Normal affect. SKIN: Scattered bruises. LYMPHATIC: No palpable lymph nodes. ENDOCRINE: Blood sugar has been evaluated. DIAGNOSTIC STUDIES LABORATORY RESULTS: Ammonia level is 58. CBC from today is pending as this is clotted. BUN is 73, creatinine is 1.8, CO2 is 21, eGFR is 26.9, ALT is 56, alkaline phosphatase is 183, bilirubin is 2.5, albumin 2.4, pro time is 18.8, INR 1.7. Last CBC from 09/06/2016 showed a white count of 12.6, it was 9.6, and platelet count was 14,000. ASSESSMENT/PLAN Ms. Yasmin Cai is a 76-year-old with a history of nonalcoholic steatohepatitis, chronic kidney disease, coronary artery disease, tricuspid regurgitation with a history of heart failure, diabetes, chronic obstructive pulmonary disease, who was readmitted with abdominal pain and severe thrombocytopenia, worse than her baseline, poorly responsive to platelet transfusion. She has required multiliter paracentesis both today as well as during her recent hospitalizations both at [facility] and at [facility] with both hospitalizations complicated by hepatic encephalopathy. Given her recent severe worsening of thrombocytopenia, we will need to evaluate her possibly for microangiopathic hemolytic process although her renal function itself has not appreciably changed since last visit. I discussed this with Ms. Cai when she was there at Ultrasound, recommended to do a complete ultrasound including Unit #: [id number] #: [id number] Patient: YASMIN CLIFTON determination of spleen size and Doppler flow to see which of the portal vein thromboses. We discussed about hospice care as she tells me that she is tired and weak and with the recent demise of her , would prefer to be kept comfortable rather than hospitalized again and again. RECOMMENDATIONS 1. Hospice consult as requested by the patient. 2. Evaluate for microangiopathic hemolysis with retic count, haptoglobin, LDH and peripheral smear after CBC is redrawn in view of clots previously. 3. Transfusion support based upon the patient's wishes. Thank you for allowing me to participate in her care. Dictated by... Adrienne Johnson/gladys TD: 09/08/2016 03:48 JOB #: [id number] CONSULTATION REPORT Page 1 of 1 X Ken Roman MD X CONSULTATION REPORT
--- NOTE | ~2016-09-06 | EKG ---
PATIENT: YASMIN CLIFTON UNIT #: [id number] Ventricular Rate: 65 BPM Atrial Rate: 65 BPM P-R Interval: 198 ms QRS Duration: 68 ms Q-T Interval: 448 ms QTC Calculation(Bezet): 465 ms P [place]: 33 degrees Calculated R [place]: 32 degrees Calculated T [place]: 46 degrees Diagnosis Line: Normal sinus rhythm Diagnosis Line: Cannot rule out , old Inferior infarct Diagnosis Line: Diagnosis Line: Confirmed by VICKIE RYAN MD ([id number]) on 09/07/2016 Diagnosis Line: 6:20:33 AM INTERPRETING MD: CONNOR MAHONEY
--- NOTE | ~2016-09-06 | HP ---
Unit #: [id number] #: [id number] Patient: YASMIN CLIFTON [id number] [facility]. [place], [place] [address] [id number] MR#: [id number] NAME: YASMIN CLIFTON ROOM: 47540 Age: 76 Sex: F Admission Date: 09/06/2016 : 1940 Attending Physician: Aleja Turner M.D. Primary Care Physician: Tee Bello M.D. HISTORY AND PHYSICAL CHIEF COMPLAINT Ascites, abdominal pain. HISTORY OF PRESENT ILLNESS The patient is a 76-year-old female with a past medical history of nonalcoholic steatohepatitis, chronic kidney disease, chronic pancytopenia, pulmonary nodule, valvular heart disease, coronary artery disease, peripheral vascular disease, transient ischemic attack, hypertension, diabetes, and chronic obstructive pulmonary disease, who presented to the emergency department from rehab for evaluation of the above. The patient was apparently just discharged from [facility] on September 04, 2016. She underwent paracentesis on the day of discharge. She noticed increased abdominal girth and increased lower extremity swelling since yesterday. She presented to the emergency department today for further evaluation. She has had mild shortness of breath in association with the increased girth. She denies any chest pain and no fever. She has had loose stool at baseline. In the emergency department, the plan was for her to undergo paracentesis and be discharged back to rehab. However, platelets were noted to be 17,000. She is being admitted to [facility] for evaluation and further treatment. PAST MEDICAL HISTORY 1. Admission to [facility] within the past week for altered mental status. She was discharged to rehab on September 04, 2016 (no records). Per the patient and family, she underwent paracentesis on September 04, 2016. 2. Admission to [facility] August 18, 2016, for pneumonia and sepsis. She was found to have a pulmonary nodule during that admission and is scheduled to follow up with Dr. Martinez with repeat imaging in six weeks. She also had atrial flutter with rapid ventricular response and was seen by Cardiology. She was not placed on chronic anticoagulation due to chronic pancytopenia. Additionally, the patient underwent EGD during that hospitalization that showed portal hypertensive gastropathy. She also underwent paracentesis on August 21, 2016, with removal of 1700 mL of fluid. 3. Nonalcoholic steatohepatitis followed by Dr. Perez. The patient has seen Dr. Ghosh here in the past. She is now having recurrent ascites. She also has portal gastropathy. 4. Chronic kidney disease. 5. Chronic anemia. Unit #: [id number] #: [id number] Patient: YASMIN CLIFTON 6. 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 7. Pulmonary nodule followed by Dr. Martinez. This was noted on CT of the chest August 19, 2016. An irregular marginated partly spiculated nodule in the superolateral right middle lobe measuring 1.6 x 1.1 cm. There was also a lobulated nodule in the anteromedial left upper lobe measuring 1.1 x 0.9 cm. The plan per the Discharge Summary was repeat imaging in six weeks. 8. Severe tricuspid regurgitation. The patient had an echocardiogram July 04, 2007, that was technically limited but showed an ejection fraction of 55%. At that time, mild mitral regurgitation and mild tricuspid regurgitation were noted. The severe tricuspid regurgitation is per the Discharge Summary from August 26. She may have had an echocardiogram during that admission; however, the results are not in [facility]. 9. Coronary artery disease, status post coronary artery bypass grafting, followed by Dr. Tellez. 10. Peripheral vascular disease, status post carotid endarterectomy. 11. Transient ischemic attack. 12. Hypertension. 13. Diabetes. 14. Chronic obstructive pulmonary disease, not on home oxygen. PAST SURGICAL HISTORY 1. Coronary artery bypass grafting. 2. Left carotid endarterectomy. 3. Cholecystectomy. 4. Hysterectomy. 5. Exploratory laparotomy. 6. Breast biopsy. 7. Bilateral carpal tunnel release. 8. EGD. SOCIAL HISTORY The patient is currently at rehab. She is a former smoker. She prior to being hospitalized in July was walking without assistance but now is using a walker and is having limited mobility. Regarding code status, the patient is a Full Code. ALLERGIES Penicillin, sulfa, morphine, codeine, meperidine, diphenhydramine. HOME MEDICATIONS 1. Humulin-R. 2. Pantoprazole. 3. Tenormin. 4. Lactulose. 5. Lasix. 6. Aldactone. 7. Spiriva. 8. ProAir. 9. Advair. 10. Acetaminophen. Home medications will need to be reviewed and verified. REVIEW OF SYSTEMS A complete review of systems is negative except as indicated in the History of Present Illness. Unit #: [id number] #: [id number] Patient: YASMIN CLIFTON PHYSICAL EXAMINATION VITAL SIGNS: Temperature is 97.7, pulse 63, respirations 18, blood pressure 153/42, and oxygen saturation is 97% on room air. GENERAL: Patient is a female who is awake and alert, sitting in the chair. HEENT: Head is atraumatic. Mucous membranes are moist. NECK: Supple. Trachea is midline. CARDIOVASCULAR: Regular rate and rhythm. LUNGS: Clear to auscultation bilaterally with no increased work of breathing. ABDOMEN: Somewhat distended. She is mildly tender to palpation throughout. Bowel sounds are present, but decreased. NEUROLOGIC: Patient is alert and oriented x3. She follows commands. PSYCHIATRIC: Mood and affect are normal. Patient is cooperative. SKIN: Skin of examined areas is warm and dry. EXTREMITIES: Patient has 2 to 3+ pitting edema of bilateral lower extremities. DIAGNOSTIC STUDIES LABORATORY: Ammonia level is 20. INR is 1.8. Comprehensive metabolic panel notable for a glucose of 414, BUN and creatinine 69 and 1.7, respectively, ALT 69, alkaline phosphatase 225, total bilirubin 3.1, albumin 2.5, and total protein 5.2. Lipase is 2.2. Complete blood count notable for hemoglobin of 11.4 and platelets are 17,000. ASSESSMENT The patient is a 76-year-old female with: 1. Recurrent ascites. The patient's last paracentesis was on September 04, 2016, at [facility]. 2. Thrombocytopenia, acute on chronic. The patient's platelet count is 17 today and was 60 on August 27, 2016. It is secondary to liver disease. 3. History of nonalcoholic steatohepatitis. 4. Chronic kidney disease. The patient's creatinine is 1.7 today. It was 2.1 on August 27, 2016. 5. Uncontrolled diabetes with a glucose of 414. 6. Coagulopathy with an INR of 1.8 secondary to liver disease. 7. Pulmonary nodule followed by Dr. Martinez. Please see CT results above. 8. Severe tricuspid regurgitation per Discharge Summary from earlier this month. The last echocardiogram in [facility] is from 2007. 9. Coronary artery disease, status post coronary artery bypass grafting. 10. Peripheral vascular disease, status post carotid endarterectomy. 11. Transient ischemic attack. 12. Hypertension. 13. Chronic obstructive pulmonary disease. 14. Former smoker. 15. Debility. PLAN 1. Admit for observation to med/surg. 2. Healthy heart, consistent carbohydrate diet. 3. Transfuse one unit of platelets as previously ordered by the emergency room. 4. Consult Interventional Radiology for paracentesis. 5. Low-dose sliding scale insulin with Accu-Cheks. 6. Check EKG and cardiac enzymes. 7. Repeat CBC later this evening to follow up acute on chronic Unit #: [id number] #: [id number] Patient: YASMIN CLIFTON thrombocytopenia. 8. Get records from [facility]. 9. Strict I/Os. 10. Daily weights. 11. [employer]/Social Work consult regarding patient and family request to change rehab to [facility]. 12. Repeat labs in the morning. 13. Regarding code status, the patient is a Do Not Resuscitate. 14. SCDs for DVT prophylaxis. 1. Dictated by Aleja Turner M.D. AW/esvin TD: 09/06/2016 17:12 JOB #: [id number] HISTORY AND PHYSICAL Page 1 of 1 X Aleja Turner MD HISTORY AND PHYSICAL
[2016-09-06 11:53] LABS: BASOPHIL% 0.1 % (0-2.5); HEMATOCRIT 36.5 % (35.0-45.0); HEMOGLOBIN 11.4 gm/dL (12.0-16.0); LYMPHOCYTE# 0.1 X10e3 (1.0-3.5); LYMPHOCYTE% 0.6 % (17.0-45.0); MEAN CELL VOLUME 97.7 FL (83-96); MEAN CORPUSCULAR HEMOGLOBIN 30.5 PG (28-34); MEAN CORPUSCULAR HGB CONC 31.2 g/dL (30-36); MEAN PLATELET VOLUME 9.8 FL (6.5-11.5); MONOCYTE# 0.5 X10e3 (0-1.0); MONOCYTE% 5.1 % (3.0-12.0); NEUTROPHIL# 9.4 X10e3 (1.5-7.1); NEUTROPHIL% 94.2 % (40-75); RED BLOOD COUNT 3.74 X10e (3.90-5.30); RED CELL DISTRIBUTION WIDTH 29.7 % (11.0-15.5)
[2016-09-06 12:13] LABS: ALBUMIN SERUM 2.5 g/dL (3.5-5.0); BILIRUBIN,INDIRECT 2.1 mg/dL (0.0-0.9); BILIRUBIN,TOTAL 3.1 mg/dL (0.2-2.0); BUN/CREATININE RATIO 40.58; CALCIUM SERUM 8.6 mg/dL (8.4-10.2); CREATININE SERUM 1.7 mg/dL (0.6-1.4); GLOM FILT RATE Estimated 28.8 mL/min (>60); INR 1.8; PARTIAL THROMBOPLASTIN TIME 33.2 SECONDS (23.5-31.3); PROTEIN TOTAL SERUM 5.2 g/dL (6.0-8.3); PROTHROMBIN TIME (PATIENT) 19.7 SECONDS (9.6-11.5)
[2016-09-06 12:21] LABS: DIFF IND YES; PLATELET COUNT 17 X10e3 (140-420)
[2016-09-06 12:32] LABS: ANISOCYTOSIS MOD; HYPERSEGMENTED POLYS PRESENT; PLATELET ESTIMATE DECREASED (NORMAL); SCHISTOCYTES PRESENT; TEAR DROP CELLS PRESENT
[2016-09-06 18:39] LABS: CK TOTAL 57 IU/L (26-140)
[2016-09-06] MEDS ORDERED: LEVEMIR100 UNITS/ SUBQ (18:45)
[2016-09-06] MEDS ORDERED: LACTULOSE10 GM/152 PO (18:45)
[2016-09-06] MEDS ORDERED: LOPRESSOR PO (18:45)
[2016-09-06] MEDS ORDERED: PANTOPRAZOLE SO40 MG PO (18:45)
[2016-09-06] MEDS ORDERED: SPIRIVA18 MCG INH (18:46)
[2016-09-06] MEDS ORDERED: ALDACTONE25 MG PO (18:46)
[2016-09-06] MEDS ORDERED: SODIUM BICARBO325 MG PO (18:46)
[2016-09-06] MEDS ORDERED: PREDNISONE PO (18:46)
[2016-09-06] MEDS ORDERED: ALBUTEROL0.63 MG/3 INH (18:47)
[2016-09-06] MEDS ORDERED: TYLENOL325 M1 PO (18:47)
[2016-09-06] MEDS ORDERED: ADVAIR 250-501 EACH INH (18:47)
[2016-09-06] MEDS ORDERED: BUMETANIDE1 MG PO (18:48)
[2016-09-06] MEDS ORDERED: NOVOLOG FL100 UNIT/1 (18:49)
[2016-09-06] MEDS ORDERED: PROBIOTIC1 EAC2 PO (18:50)
[2016-09-06] MEDS ORDERED: ALPRAZOLAM PO (19:17)
[2016-09-06 23:35] LABS: BASOPHIL# 0.1 X10e3 (0-0.3); BASOPHIL% 0.5 % (0-2.5); HEMATOCRIT 30.8 % (35.0-45.0); HEMOGLOBIN 9.6 gm/dL (12.0-16.0); LYMPHOCYTE# 0.1 X10e3 (1.0-3.5); LYMPHOCYTE% 0.6 % (17.0-45.0); MEAN CELL VOLUME 98.7 FL (83-96); MEAN CORPUSCULAR HEMOGLOBIN 30.7 PG (28-34); MEAN CORPUSCULAR HGB CONC 31.1 g/dL (30-36); MEAN PLATELET VOLUME 11.6 FL (6.5-11.5); MONOCYTE# 0.7 X10e3 (0-1.0); MONOCYTE% 5.9 % (3.0-12.0); NEUTROPHIL# 11.7 X10e3 (1.5-7.1); RED BLOOD COUNT 3.12 X10e (3.90-5.30); WHITE BLOOD COUNT 12.6 X10e3 (4.0-10.5)
[2016-09-06 23:43] LABS: PLATELET COUNT 14 X10e3 (140-420)
[2016-09-06 23:44] LABS: DIFF IND NO
[2016-09-06 23:51] LABS: CK TOTAL 36 IU/L (26-140)
[2016-09-07 04:44] LABS: INR 1.7; PROTHROMBIN TIME (PATIENT) 18.8 SECONDS (9.6-11.5)
[2016-09-07 04:52] LABS: CK TOTAL 44 IU/L (26-140)
[2016-09-07 04:56] LABS: ALBUMIN SERUM 2.4 g/dL (3.5-5.0); BILIRUBIN,TOTAL 2.5 mg/dL (0.2-2.0); BUN/CREATININE RATIO 40.55; CALCIUM SERUM 8.4 mg/dL (8.4-10.2); CREATININE SERUM 1.8 mg/dL (0.6-1.4); GLOM FILT RATE Estimated 26.9 mL/min (>60); POTASSIUM 3.8 mmol/L (3.5-5.1); PROTEIN TOTAL SERUM 4.6 g/dL (6.0-8.3)
[2016-09-07 16:26] LABS: BASOPHIL% 0.1 % (0-2.5); HEMATOCRIT 29.1 % (35.0-45.0); HEMOGLOBIN 9.2 gm/dL (12.0-16.0); LYMPHOCYTE# 0.1 X10e3 (1.0-3.5); LYMPHOCYTE% 0.6 % (17.0-45.0); MEAN CELL VOLUME 98.4 FL (83-96); MEAN CORPUSCULAR HEMOGLOBIN 31.2 PG (28-34); MEAN CORPUSCULAR HGB CONC 31.7 g/dL (30-36); MEAN PLATELET VOLUME 11.8 FL (6.5-11.5); MONOCYTE# 0.3 X10e3 (0-1.0); MONOCYTE% 2.6 % (3.0-12.0); NEUTROPHIL% 96.7 % (40-75); RED BLOOD COUNT 2.96 X10e (3.90-5.30); RED CELL DISTRIBUTION WIDTH 29.3 % (11.0-15.5); WHITE BLOOD COUNT 10.4 X10e3 (4.0-10.5)
[2016-09-07 16:57] LABS: DIFF IND NO; PLATELET COUNT 12 X10e3 (140-420)
[2016-09-08 03:45] LABS: HEMOGLOBIN 9.1 gm/dL (12.0-16.0); MEAN CELL VOLUME 97.6 FL (83-96); MEAN CORPUSCULAR HEMOGLOBIN 30.7 PG (28-34); MEAN CORPUSCULAR HGB CONC 31.4 g/dL (30-36); MEAN PLATELET VOLUME 11.4 FL (6.5-11.5); RED BLOOD COUNT 2.97 X10e (3.90-5.30); RED CELL DISTRIBUTION WIDTH 29.3 % (11.0-15.5); WHITE BLOOD COUNT 5.5 X10e3 (4.0-10.5)
[2016-09-08 04:06] LABS: ALBUMIN SERUM 2.2 g/dL (3.5-5.0); BILIRUBIN,TOTAL 2.3 mg/dL (0.2-2.0); CALCIUM SERUM 7.9 mg/dL (8.4-10.2); CREATININE SERUM 1.7 mg/dL (0.6-1.4); GLOM FILT RATE Estimated 28.8 mL/min (>60); MAGNESIUM 2.1 mg/dL (1.6-3.0); PROTEIN TOTAL SERUM 4.5 g/dL (6.0-8.3)
[2016-09-09] MEDS ORDERED: ATIVAN PO (10:01)
[2016-09-09] MEDS ORDERED: OXYIR5 MG PO (10:02)
== END 2016-09-09 10:05 | disposition home health service (06) ==
LOC: CED 11:49 → CEDOF 16:00 → C4B 19:59 → C4C 09-07 14:40
PROVIDERS: Emergency Medicine; Family Medicine
PROC: 0W9G3ZX Drainage of Peritoneal Cavity, Percutaneous Approach, Diagnostic (ICD-10-PCS; principal; 2016-09-06)
DX: K74.69 Other cirrhosis of liver (principal); R18.8 Other ascites; K76.6 Portal hypertension; K75.81 Nonalcoholic steatohepatitis (NASH); I12.9 Hypertensive chronic kidney disease with stage 1 through stage 4 chronic kidney disease, or unspecified chronic kidney disease; E11.65 Type 2 diabetes mellitus with hyperglycemia; E11.22 Type 2 diabetes mellitus with diabetic chronic kidney disease; N18.9 Chronic kidney disease, unspecified; Z79.4 Long term (current) use of insulin; D61.818 Other pancytopenia; D69.6 Thrombocytopenia, unspecified; R16.1 Splenomegaly, not elsewhere classified; J44.9 Chronic obstructive pulmonary disease, unspecified; R91.1 Solitary pulmonary nodule; Z79.899 Other long term (current) drug therapy; I73.9 Peripheral vascular disease, unspecified; I25.10 Atherosclerotic heart disease of native coronary artery without angina pectoris; Z95.1 Presence of aortocoronary bypass graft; Z86.73 Personal history of transient ischemic attack (TIA), and cerebral infarction without residual deficits; Z87.891 Personal history of nicotine dependence; I36.1 Nonrheumatic tricuspid (valve) insufficiency; D63.1 Anemia in chronic kidney disease; Z90.710 Acquired absence of both cervix and uterus; Z90.49 Acquired absence of other specified parts of digestive tract; Z98.890 Other specified postprocedural states
CPT/HCPCS: 36415; 36430; 76700; 80048; 80053; 80076; 82140; 82550; 82947; 83615; 83690; 83735; 84484; 85025; 85027; 85044; 85384; 85610; 85730; 86850; 86900; 86901; 92610; 93005; 94640; 94664; 94760; 96374; 99285; G0378; G8996-GN; G8997-GN; J1170; J1815; P9035